=== PATIENT | female | born 1965 | race Caucasian/White ===

== ENCOUNTER 2019-08-02 01:56 | Emergency (ER) | payer OTHER, SELFPAY ==
[2019-08-02 01:54] VITALS: BP 171/80; PULSE 73; RESP 18; TEMP 37.8; O2SAT 97
--- NOTE | 2019-08-02 02:04 | ED.ALLEREA ---
HPI - Allergic Reaction General Chief complaint: Allergic Reaction Stated complaint: allergic reaction Time Seen by Provider: 08/02/19 02:05 Source: patient and RN notes reviewed Mode of arrival: EMS Limitations: no limitations History of Present Illness HPI narrative: Pt is a 53 y/o female who presents to the ED via EMS with c/o possible allergic reaction. She notes that she ate grapes yesterday evening that tasted strange. Pt states that she later developed itching and erythema in her bilateral hands around 00:30 this morning. She notes that the erythema has since spread up her arms and into her chest and face. Pt also reports nausea, vomiting, palpitations, heaviness in her upper chest, and difficulty breathing due to her throat feeling swollen. She notes that she received Zofran and Benadryl while in route to the ED, and states that her symptoms seem to be alleviating while in the ED bed. Pt notes that she had similar symptoms several months ago, but states that she is unsure of what she may have had a reaction to. MD complaint: allergic reaction Onset (ago): hour(s) (1.5) Exposure: unknown Symptoms: rash (bilateral arms; chest; face), itching (bilateral hands), difficulty breathing, nausea, vomiting and other (throat swelling; palpitations; heaviness in upper chest) Treatment prior to arrival: benadryl and other (Zofran) Related Data Home Medications Medication Instructions Recorded Confirmed dapagliflozin-metformin [Xigduo XR] PO 05/30/19 levothyroxine 05/30/19 metoprolol tartrate 05/30/19 Allergies Allergy/AdvReac Type Severity Reaction Status Date / Time codeine Allergy Unknown Unknown Verified 08/02/19 02:03 Sulfa (Sulfonamide Allergy Unknown Unknown Verified 08/02/19 02:03 Antibiotics) doxycycline Allergy Other Verified 08/02/19 02:03 cefaclor AdvReac Unknown NAUSEA Verified 08/02/19 02:03 xyltophy Allergy Itching Uncoded 08/02/19 02:03 Review of Systems Review of Systems: All systems reviewed & are unremarkable except as noted in HPI and below ENT: Reports throat swelling Cardiovascular: Cardiovascular: Reports palpitations and Reports other (heaviness in upper chest) Respiratory: Respiratory: Reports other (difficulty breathing) Gastrointestinal: Gastrointestinal: Reports nausea and Reports vomiting Integumentary/Breasts: Skin/Breast: Reports pruritus (bilateral hands) and Reports rash (bilateral arms; chest; face) [facility] Past Medical History Medical History Anemia Anxiety Arthritis Asthma Bronchitis Cataracts, bilateral COPD (chronic obstructive pulmonary disease) Depression Diabetes Ear infection Endometriosis Hypertension Hypothyroidism Ovarian cyst UTI (urinary tract infection) Surgical History Surgical History History of hysterectomy Hx of appendectomy Hx of arthroscopy of right knee Hx of section Hx of oophorectomy lt ovary Hx of tubal ligation Family History Family History (Updated 01/23/18 @ 09:36 by DOCTOR UNKNOWN) Father Diabetes mellitus Social History Social History Smoking status: Never smoker Alcohol intake: never Comments PCP is Dr. Prince. Exam Narrative: Exam Narrative: GENERAL: Anxious-appearing, well-nourished, and in no acute distress. HEAD: Normocephalic, atraumatic. EYES: PERRL and EOMI. ENT: Mucous membranes moist. No pharyngeal erythema or tonsillar exudate. TMs normal on the right side with slight fluid behind it. Cerumen in left ear canal. No angioedema. Uvula midline nonedematous. NECK: Supple. CHEST: Clear to auscultation. No respiratory distress. HEART: Regular rate and rhythm. Normal peripheral pulses. ABDOMEN: Soft, nontender, nondistended. EXTREMITIES: Normal range of motion. No edema. SKIN: Warm, dry, erythema to the face/chest/upper extremities with excoriations to
[2019-08-02] MEDS: methylPREDNISolone SOD SUCC 125 MG VIAL IV PUSH (02:23)
[2019-08-02] MEDS: FAMOTIDINE 20 MG/2 ML VIAL IV PUSH (02:23)
[2019-08-02 02:53] VITALS: BP 144/64; PULSE 71; RESP 16; O2SAT 94
--- NOTE | 2019-08-02 03:19 | PC.NURSE ---
this rn checked on pt. pt less flushed. pt states she feels a lot better. she denies having any issues breathing or tightness in chest. notified.
[2019-08-02 03:54] VITALS: BP 120/52; PULSE 66; RESP 18; O2SAT 96
[2019-08-02 04:41] VITALS: BP 133/57; PULSE 66; RESP 16; O2SAT 96
[2019-08-02 06:01] VITALS: BP 132/82; PULSE 85; RESP 16; O2SAT 99
== END 2019-08-02 06:05 | disposition home or self-care (01) ==
PROVIDERS: Emergency Provider Emergency Medicine; PCP Family Medicine
DX: T78.40XA Allergy, unspecified, initial encounter (principal); M19.90 Unspecified osteoarthritis, unspecified site; J44.9 Chronic obstructive pulmonary disease, unspecified; E11.9 Type 2 diabetes mellitus without complications; E03.9 Hypothyroidism, unspecified; I10 Essential (primary) hypertension; Z87.440 Personal history of urinary (tract) infections; H26.9 Unspecified cataract; Z79.84 Long term (current) use of oral hypoglycemic drugs
CPT/HCPCS: 87081; 87804; 87880; 96374; 96375; 99284; J2930

== ENCOUNTER 2019-10-23 12:33 | Outpatient (CLI) | payer OTHER, SELFPAY ==
[2019-10-23 13:02] LABS: Hematocrit 41.9 % (37.0-47.0); Hemoglobin 13.6 g/dL (12.0-15.0); Mean Corpuscular HGB Conc 32.5 g/dl (32-36); Mean Corpuscular Hemoglobin 26.7 pg (26-34); Mean Corpuscular Volume 82.2 fl (80-100); Platelet Count Result 235 k/mm3 (150-375); Red Cell Distribution Width 13.8 % (11.5-14.5); White Blood Count 5.6 K/mm3 (4.5-10.0)
[2019-10-23 13:15] LABS: Alanine Aminotransferase 42 U/L (4-35); Albumin Level 4.6 g/dL (3.5-5.1); Alkaline Phosphatase 94 U/L (38-126); Aspartate Amino Transferase 40 U/L (14-36); Bilirubin,Total 0.4 mg/dL (0.2-1.3); Blood Urea Nitrogen 12 mg/dL (7-17); Calcium 9.5 mg/dL (8.4-10.2); Carbon Dioxide 27 mmol/L (22-30); Chloride 104 mmol/L (98-107); Cholesterol 284 mg/dL (0-200); Estimated Glomerular Filt Rate > 60; Glucose 98 mg/dL (65-105); HDL Direct 49 mg/dL; Potassium 4.1 mmol/L (3.4-5.0); Sodium 137 mmol/L (137-145); Triglycerides 291 mg/dL (<150)
[2019-10-23 13:26] LABS: LDL Cholesterol Direct 139 mg/dL
[2019-10-23 13:50] LABS: Free T4 Free Thyroxine 1.26 ng/mL (0.78-2.19)
== END 2019-10-23 12:34 | disposition home or self-care (01) ==
PROVIDERS: PCP Family Medicine; Visit Provider Physician Assistant Medical
DX: I10 Essential (primary) hypertension (principal); E78.5 Hyperlipidemia, unspecified; E03.9 Hypothyroidism, unspecified
CPT/HCPCS: 36415; 80053; 80061; 84439; 84443; 85027

== ENCOUNTER 2019-11-23 15:08 | Outpatient (CLI) | payer OTHER, SELFPAY ==
[2019-11-23 16:56] LABS: Hepatitis B Surface Antigen Negative (Negative)
[2019-11-23 17:01] LABS: HAV RESULT Negative (Negative); Hepatitis B Core IgM Result Negative (Negative)
[2019-11-23 17:13] LABS: Hepatitis C Virus Antibody Negative (Negative)
[2019-11-26 05:02] LABS: GGT 46 U/L (3-70)
== END 2019-11-23 15:09 | disposition home or self-care (01) ==
PROVIDERS: PCP Family Medicine; Visit Provider Physician Assistant Medical
DX: R79.89 Other specified abnormal findings of blood chemistry (principal)
CPT/HCPCS: 36415; 80074; 82977

== ENCOUNTER 2020-07-28 14:07 | Emergency (ER) | payer OTHER, SELFPAY ==
--- NOTE | ~2020-07-28 | XR_ITS ---
EXAMINATION: XR toe 1st LT min 2V INDICATION: Left first toe pain, initial encounter TECHNIQUE: Four views of the left first toe are obtained on five radiographs. COMPARISON: None available FINDINGS: There is an acute, traumatic, closed, oblique fracture at the medial base of the first prox imal phalanx which extends to the metatarsophalangeal joint. There also appears to be a nondisplaced, comminuted fracture at the base of the first distal phalanx which extends to the interphalangeal hina nt. There is soft tissue swelling of the toe. IMPRESSION: 1. Comminuted fracture of the first distal phalanx and oblique intra-articular fracture of the first proximal phalanx. Reviewed, dictated and finalized at location A. [employer]
--- NOTE | 2020-07-28 14:14 | ED.GENADULT ---
HPI - General Adult General Chief complaint: Extremity Injury, Lower Stated complaint: lt foot big toe injury Time Seen by Provider: 07/28/20 14:14 Source: patient Mode of arrival: ambulatory Limitations: no limitations History of Present Illness HPI narrative: 54-year-old female patient presents to the [facility] with complaints of left big toe pain after tripping over her dog this afternoon. Patient states this happened approximately 2 to 3 hours ago. Patient states that she was holding something in her hands did not see her dog laying down and tripped over her dog. Patient states she has been trying to elevate the toe but denies using any ice, Tylenol or ibuprofen. Patient states it does hurt to try and walk on it. Related Data Home Medications Medication Instructions Recorded Confirmed cetirizine 10 mg tablet 10 mg PO DAILY 08/03/19 07/28/20 Allergies Allergy/AdvReac Type Severity Reaction Status Date / Time dapagliflozin Allergy Mild Unknown Verified 07/28/20 14:18 [From Xigduo XR] metformin [From Xigduo XR] Allergy Mild Unknown Verified 07/28/20 14:18 codeine Allergy Unknown Unknown Verified 07/28/20 14:18 Sulfa (Sulfonamide Allergy Unknown Unknown Verified 07/28/20 14:18 Antibiotics) doxycycline Allergy Other Verified 07/28/20 14:18 cefaclor AdvReac Unknown NAUSEA Verified 07/28/20 14:18 xyltophy Allergy Itching Uncoded 07/28/20 14:18 Review of Systems Review of Systems: Narrative: CONSTITUTIONAL: Denies fever, chills, or sweats. EYES: Denies visual changes, redness, or discharge. ENT: Denies rhinorrhea, congestion, sore throat, or otalgia. CARDIOVASCULAR: Denies chest pain, palpitations, or edema. RESPIRATORY: Denies cough or dyspnea. GASTROINTESTINAL: Denies abdominal pain, nausea, vomiting, or diarrhea. GENITOURINARY: Denies dysuria or hematuria. SKIN: Denies rash or itching. MUSCULOSKELETAL: Denies back pain, joint pain, or myalgia. Positive pain to left big toe NEUROLOGIC: Denies headache, numbness, or weakness. PSYCHIATRIC: Denies anxiety or depression. [facility] Past Medical History Medical History (Updated 07/28/20 @ 14:58 by LAIHT Oshea) Anemia Anxiety Arthritis Asthma Bronchitis Cataracts, bilateral COPD (chronic obstructive pulmonary disease) Depression Diabetes Ear infection Endometriosis Hypertension Hypothyroidism Ovarian cyst UTI (urinary tract infection) Surgical History Surgical History History of hysterectomy Hx of appendectomy Hx of arthroscopy of right knee Hx of section Hx of oophorectomy lt ovary Hx of tubal ligation Family History Family History Father Diabetes mellitus Social History Social History Smoking status: Never smoker Alcohol intake: never Comments At the time of my signature I agree with nursing past medical history, surgical, social, and family history. There is no relevant family history pertinent to the presenting complaint. Exam Narrative: Exam Narrative: GENERAL: Well-appearing, well-nourished, and in no acute distress. HEAD: Normocephalic, atraumatic. EYES: PERRLA and EOMI. ENT: Nares clear, no rhinorrhea or epistaxis. Mucous membranes moist. NECK: Supple. No lymphadenopathy CHEST: Clear to auscultation. No respiratory distress. HEART: Regular rate and rhythm. No murmur heard. Normal peripheral pulses. ABDOMEN: Soft, nontender, nondistended, normal active bowel sounds. EXTREMITIES: Normal range of motion. No edema. Patient does have bruising noted over the PIP joint of the left great toe on the dorsal side. There is tenderness on palpation there as well as pain when trying to bend it. Patient does appear to have little bit of blood underneath the toenail of the left great toe. DP pulses present. No numbness or tingling. Good sensation to the distal
[2020-07-28 14:22] VITALS: BP 140/74; PULSE 76; RESP 16; TEMP 36.9; O2SAT 100
[2020-07-28] MEDS: ACETAMINOPHEN 500 MG TABLET 1000 MG PO (14:54)
== END 2020-07-28 15:07 | disposition home or self-care (01) ==
PROVIDERS: Emergency Provider Nurse Practitioner Family; PCP Family Medicine
DX: S92.425A Nondisplaced fracture of distal phalanx of left great toe, initial encounter for closed fracture (principal); W01.0XXA Fall on same level from slipping, tripping and stumbling without subsequent striking against object, initial encounter; S90.212A Contusion of left great toe with damage to nail, initial encounter; M19.90 Unspecified osteoarthritis, unspecified site; J44.9 Chronic obstructive pulmonary disease, unspecified; E11.9 Type 2 diabetes mellitus without complications; E03.9 Hypothyroidism, unspecified; I10 Essential (primary) hypertension; N80.9 Endometriosis, unspecified; H26.9 Unspecified cataract
CPT/HCPCS: 11740; 73660; 99214; A9270; G0463

== ENCOUNTER 2020-10-03 15:27 | Outpatient (CLI) | payer OTHER, SELFPAY ==
--- NOTE | ~2020-10-03 | XR_ITS ---
XR foot LT 2V 10/03/2020 15:49 Indication: Left foot pain Procedure: 2 views left foot Comparison: 07/28/2020 Findings: There are degenerative changes of the first digit at the MTP and IP joints. There is mild s oft tissue swelling of the first digit. No acute fracture or traumatic malalignment. Lisfranc joint i ntact. Small degenerative calcaneal enthesophytes. The previously visualized fracture of the first di stal phalanx and proximal phalanx are not visualized on the current study. Consider correlation with complete left foot series. Impression: 1: Healed fracture left first distal phalanx. No discrete fracture line identified on the current kameron dy. Consider complete left foot series. Reviewed, dictated and finalized at location A. Impression: 1: Healed fracture left first distal phalanx. No discrete fracture line identif ied on the current study. Consider complete left foot series.
== END 2020-10-03 15:28 | disposition home or self-care (01) ==
LOC: ANHIMG 15:33
PROVIDERS: PCP Family Medicine; Visit Provider Physician Assistant Medical
DX: S92.403 Displaced unspecified fracture of unspecified great toe (principal); X58.XXXD Exposure to other specified factors, subsequent encounter
CPT/HCPCS: 73620

== ENCOUNTER 2021-03-08 09:42 | Outpatient (CLI) | payer OTHER, SELFPAY ==
[2021-03-08 11:40] LABS: Rubella IgG Antibody 35.1 IU/ML
== END 2021-03-08 09:43 | disposition home or self-care (01) ==
PROVIDERS: PCP Family Medicine; Visit Provider Physician Assistant Medical
DX: E78.9 Disorder of lipoprotein metabolism, unspecified (principal)
CPT/HCPCS: 36415; 86735; 86762; 86765

== ENCOUNTER 2021-03-29 08:51 | Outpatient (CLI) | payer OTHER, SELFPAY ==
[2021-03-29 12:21] LABS: Alanine Aminotransferase 24 U/L (4-35); Albumin Level 5.1 g/dL (3.5-5.1); Alkaline Phosphatase 107 U/L (38-126); Anion Gap 10 mmol/L (8-16); Aspartate Amino Transferase 27 U/L (14-36); Bilirubin,Total 0.4 mg/dL (0.2-1.3); Blood Urea Nitrogen 10 mg/dL (7-17); Calcium 9.7 mg/dL (8.4-10.2); Carbon Dioxide 27 mmol/L (22-30); Chloride 103 mmol/L (98-107); Cholesterol 268 mg/dL (0-200); Estimated Glomerular Filt Rate > 60; Glucose 96 mg/dL (65-110); HDL Direct 53 mg/dL; Potassium 4.4 mmol/L (3.4-5.0); Sodium 140 mmol/L (137-145); Triglycerides 379 mg/dL (<150)
[2021-03-29 12:23] LABS: Creatinine Urine 47.8 mg/dL
[2021-03-29 12:26] LABS: MALB Creatinine Ratio 22.4 mg/g (0-30); Microalbumin Urine Random 10.7 mg/L (0-16.7)
[2021-03-29 12:32] LABS: LDL Cholesterol Direct 122 mg/dL
[2021-03-29 12:37] LABS: Free T4 Free Thyroxine 1.55 ng/mL (0.78-2.19)
[2021-03-29 12:52] LABS: Thyroid Stimulating Hormone 0.334 uIU/mL (0.465-4.680)
== END 2021-03-29 08:52 | disposition home or self-care (01) ==
LOC: ANHWCLAB 08:54
PROVIDERS: PCP Family Medicine; Visit Provider Nurse Practitioner Family
DX: E03.9 Hypothyroidism, unspecified (principal); E11.65 Type 2 diabetes mellitus with hyperglycemia; Z68.30 Body mass index [BMI] 30.0-30.9, adult
CPT/HCPCS: 36415; 80053; 80061; 82043; 84439; 84443

== ENCOUNTER 2021-10-02 09:30 | Outpatient (CLI) | payer OTHER, SELFPAY ==
[2021-10-02 13:32] LABS: Anion Gap 8 mmol/L (8-16); Blood Urea Nitrogen 13 mg/dL (7-17); Calcium 8.8 mg/dL (8.4-10.2); Carbon Dioxide 26 mmol/L (22-30); Chloride 104 mmol/L (98-107); Cholesterol 297 mg/dL (0-200); Estimated Glomerular Filt Rate > 60; Glucose 79 mg/dL (65-110); HDL Direct 49 mg/dL; Potassium 4.1 mmol/L (3.4-5.0); Sodium 138 mmol/L (137-145); Triglycerides 310 mg/dL (<150)
[2021-10-02 13:43] LABS: LDL Cholesterol Direct 143 mg/dL
[2021-10-02 13:45] LABS: Free T4 Free Thyroxine 1.38 ng/mL (0.78-2.19); Vitamin D 25 Hydroxy 18.4 ng/mL
[2021-10-02 14:00] LABS: Creatinine Urine 140.2 mg/dL
[2021-10-02 14:01] LABS: Thyroid Stimulating Hormone 0.276 uIU/mL (0.465-4.680)
[2021-10-02 14:06] LABS: MALB Creatinine Ratio 15.4 mg/g (0-30); Microalbumin Urine Random 21.6 mg/L (0-16.7)
[2021-10-05 15:01] LABS: Triiodothyronine T3 Free 2.8 pg/mL (2.3-4.2)
== END 2021-10-02 09:31 | disposition home or self-care (01) ==
LOC: ANHWCLAB 09:33
PROVIDERS: PCP Family Medicine; Visit Provider Nurse Practitioner Family
DX: E11.9 Type 2 diabetes mellitus without complications (principal); E03.9 Hypothyroidism, unspecified; E04.9 Nontoxic goiter, unspecified; E07.9 Disorder of thyroid, unspecified
CPT/HCPCS: 36415; 80048; 80061; 82043; 82306; 82607; 84439; 84443; 84481

== ENCOUNTER 2021-10-02 17:08 | Emergency (ER) | payer OTHER, SELFPAY ==
[2021-10-02 17:12] VITALS: BP 137/51; PULSE 72; RESP 20; TEMP 36.7; O2SAT 97
--- NOTE | 2021-10-02 17:35 | ED.URI ---
HPI - URI/Sore Throat General Chief Complaint: Upper Respiratory Infection Stated Complaint: SNEEZING/EARACHE Time Seen by Provider: 10/02/21 17:36 Source: patient, RN notes reviewed and old records reviewed Mode of arrival: ambulatory Limitations: no limitations History of Present Illness HPI Narrative: 56-year-old female who presents to [facility] accompanied by with 2-week history of ear pain, scratchy throat, sinus congestion, drainage and sinus pressure. Patient states she does have a history of asthma denies any recent wheezing or shortness of breath.Patient states that she does also have allergies and she took some Sudafed along with her Benadryl which did not help. 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 MD elicited complaint: sore throat, rhinorrhea, nasal congestion, sinus pain and other (Ear pain) Description of mucous: green Related Data Home Medications Medication Instructions Recorded Confirmed prasterone (dhea) 25 mg capsule 50 mg PO DAILY cap 10/02/21 Allergies Allergy/AdvReac Type Severity Reaction Status Date / Time dapagliflozin Allergy Mild Unknown Verified 10/02/21 08:37 [From Xigduo XR] metformin [From Xigduo XR] Allergy Mild Unknown Verified 10/02/21 08:37 codeine Allergy Unknown Unknown Verified 10/02/21 08:37 Sulfa (Sulfonamide Allergy Unknown Unknown Verified 10/02/21 08:37 Antibiotics) doxycycline Allergy Other Verified 10/02/21 08:37 cefaclor AdvReac Unknown NAUSEA Verified 10/02/21 08:37 xyltophy Allergy Itching Uncoded 03/29/21 08:07 Review of Systems Review of Systems: CONSTITUTIONAL: Denies fever, chills, or sweats. EYES: Denies visual changes, redness, or discharge. ENT: Positive for rhinorrhea, congestion, sore throat, or otalgia, sinus pressure CARDIOVASCULAR: Denies chest pain, palpitations, or edema. RESPIRATORY: denies acute cough or dyspnea. GASTROINTESTINAL: Denies abdominal pain, nausea, vomiting, or diarrhea. GENITOURINARY: Denies dysuria or hematuria. SKIN: Denies rash or itching. MUSCULOSKELETAL: Denies back pain, joint pain, or myalgia. NEUROLOGIC: Denies headache, numbness, or weakness. PSYCHIATRIC: Denies anxiety or depression. All systems reviewed & are unremarkable except as noted in HPI and below PMFSH Past Medical History Medical History Anemia Anxiety Arthritis Asthma BMI 30.0-30.9,adult Bronchitis Cataracts, bilateral COPD (chronic obstructive pulmonary disease) Depression Diabetes Ear infection Endometriosis Hypertension Hypothyroidism Ovarian cyst Painful urination UTI (urinary tract infection) Surgical History Surgical History History of hysterectomy Hx of appendectomy Hx of arthroscopy of right knee Hx of section Hx of oophorectomy lt ovary Hx of tubal ligation Family History Family History Father Diabetes mellitus Social History Social History Smoking status: Never smoker Second hand tobacco smoke exposure: No Alcohol intake: never Substance use: never Substance use type: does not use Comments At time of signature, agree with nursing past medical, surgical, social and family history. There is no relevant family history pertinent to the presenting complaint Exam Narrative: GENERAL: Well-appearing, well-nourished, and in no acute distress. HEAD: Normocephalic, atraumatic. EYES: PERRLA and EOMI. ENT: Nares red with membranes red and swollen,clear to at times greenish tinged rhinorrhea no epistaxis. Mucous membranes moist.TM's normal with good light reflex, throat red with no lesions or exudates, tonsil red and swollen, post nasal drainage present
== END 2021-10-02 17:53 | disposition home or self-care (01) ==
PROVIDERS: Emergency Provider Registered Nurse; PCP Family Medicine
DX: J01.40 Acute pansinusitis, unspecified (principal); M19.90 Unspecified osteoarthritis, unspecified site; J44.9 Chronic obstructive pulmonary disease, unspecified; E11.9 Type 2 diabetes mellitus without complications; I10 Essential (primary) hypertension; E03.9 Hypothyroidism, unspecified; N80.9 Endometriosis, unspecified; H26.9 Unspecified cataract
CPT/HCPCS: 87081; 87880; 99213; G0463

== ENCOUNTER 2022-02-14 14:17 | Outpatient (CLI) | payer OTHER, SELFPAY ==
--- NOTE | ~2022-02-14 | XR_ITS ---
XR chest 2V DATE: 02/14/2022 14:35 INDICATION: Cough TECHNIQUE: PA and lateral views COMPARISON: 03/29/2012 PA and lateral chest FINDINGS: Normal heart size. No hilar or mediastinal enlargement. No pulmonary infiltrate or consolid ation, pleural effusion or pulmonary vascular congestion or pneumothorax. Mild dextroscoliosis as well as degenerative spurring of the thoracic spine. IMPRESSION: No active cardiopulmonary disease Reviewed, dictated and finalized at location B.
== END 2022-02-14 14:18 | disposition home or self-care (01) ==
PROVIDERS: PCP Family Medicine; Visit Provider Nurse Practitioner Family
DX: R05.9 Cough, unspecified (principal)
CPT/HCPCS: 71046

== ENCOUNTER 2022-10-09 10:16 | Outpatient (CLI) | payer OTHER, SELFPAY ==
[2022-10-09 17:16] LABS: Anion Gap 8 mmol/L (8-16); Blood Urea Nitrogen 10 mg/dL (7-17); Calcium 9.5 mg/dL (8.4-10.2); Carbon Dioxide 28 mmol/L (22-30); Chloride 103 mmol/L (98-107); Cholesterol 303 mg/dL (0-200); Estimated Glomerular Filt Rate > 60; Glucose 82 mg/dL (65-110); HDL Direct 49 mg/dL; Potassium 4.1 mmol/L (3.4-5.0); Sodium 139 mmol/L (137-145); Triglycerides 246 mg/dL (<150)
[2022-10-09 17:24] LABS: Appearance Urine Clear (Clear); Bilirubin Urine Negative (Negative); Blood Urine Negative (Negative); Color Urine Yellow (Yellow); Glucose Urine UA Negative (Negative); Ketones Urine Negative (Negative); Leukocyte Esterase Ur Trace LEU/UL (Negative); Nitrate Urine Negative (Negative); Protein Urine Negative (Negative); Urobilinogen Urine 0.2 mg/dL (<2.0)
[2022-10-09 17:27] LABS: LDL Cholesterol Direct 163 mg/dL
[2022-10-09 17:43] LABS: Add Urine Microscopic? NO
[2022-10-09 18:24] LABS: MALB Creatinine Ratio < 18.2 mg/g (0-30); Microalbumin Urine Random < 6.0 mg/L (0-16.7)
[2022-10-14 07:47] LABS: Rubeola Measles IgG >300.00 AU/mL
== END 2022-10-09 10:17 | disposition home or self-care (01) ==
LOC: ANHWCLAB 10:18
PROVIDERS: PCP Family Medicine; Visit Provider Nurse Practitioner Family
DX: R35.0 Frequency of micturition (principal); I10 Essential (primary) hypertension; E11.65 Type 2 diabetes mellitus with hyperglycemia; Z23 Encounter for immunization
CPT/HCPCS: 36415; 80048; 80061; 81003; 82043; 86765

== ENCOUNTER 2022-11-02 16:55 | Emergency (ER) | payer OTHER, SELFPAY ==
--- NOTE | ~2022-11-02 | CT_ITS ---
EXAMINATION: CT abdomen pelvis w con DATE: 11/02/2022 18:45 INDICATION: Flank pain and lower abdominal pain. Urinary tract infection and fever. Nausea and vomiti ng. TECHNIQUE: Computed tomography (CT) of the abdomen and pelvis was performed with 100 mL Omnipaque-350 intravenous contrast. Automated exposure control and iterative reconstruction technique were employe d. The dose-length product was 694.38 mGy-cm. COMPARISON: None FINDINGS: Calcified nodule in the right major fissure, calcified right hilar lymph nodes and small splenic calc ific lesions, all consistent with old granulomatous disease. Heart size is normal. No pericardial or pleural effusion. Liver, gallbladder, pancreas, bilateral adrenal glands and right kidney are normal. 9 mm cyst at the upper pole of the left kidney. Appendectomy clips at the tip the cecum. Bowels are otherwise unremarkable with no abnormal wall thickening or obstruction. Bladder is normal. The uterus is not identified and has likely been surgically resected. Sclerotic bone island at the subtrochante amy left femur. Moderate to severe lower lumbar facet osteoarthritis. IMPRESSION: 1. No acute intra-abdominal/pelvic process. Reviewed, dictated and finalized at location A.
[2022-11-02 16:56] VITALS: BP 128/73; PULSE 69; RESP 16; TEMP 36.9; O2SAT 99
[2022-11-02 17:42] LABS: Basophils Percent Auto 0.9 % (0.2-1.2); Eosinophils Absolute Auto 0.1 K/mm3 (0-0.3); Eosinophils Percent Auto 2.1 % (0-4.4); Hematocrit 40.6 % (37.0-47.0); Immature Granulocyte Absolute 0.01 K/mm3 (0.00-0.031); Immature Granulocyte Percent A 0.2 % (0-0.5); Lymphocytes Absolute Auto 1.27 K/mm3 (0.9-3.2); Lymphocytes Percent Auto 29.3 % (18.3-44.2); Mean Corpuscular Hemoglobin 26.2 pg (26-34); Mean Corpuscular Volume 81.9 fl (80-100); Mean Platelet Volume 8.3 fl (7.4-10.4); Monocytes Absolute Auto 0.4 K/mm3 (0.1-0.6); Monocytes Percent Auto 8.5 % (2.6-8.5); Neutrophils Absolute Auto 2.6 K/mm3 (1.3-6.7); Platelet Count Result 226 k/mm3 (150-375); Red Blood Count 4.96 M/mm3 (4.2-5.4); Red Cell Distribution Width 14.1 % (11.5-14.5); White Blood Count 4.3 K/mm3 (4.5-10.0)
[2022-11-02 17:47] LABS: Appearance Urine Cloudy (Clear); Bacteria Urine None Seen /hpf; Bilirubin Urine Negative (Negative); Blood Urine Negative (Negative); Color Urine Yellow (Yellow); Glucose Urine UA Negative (Negative); Ketones Urine Negative (Negative); Leukocyte Esterase Ur 1+ LEU/UL (Negative); Nitrate Urine Negative (Negative); Non Pathogenic Casts 0-2; Protein Urine Negative (Negative); Specific Grav Ur 1.013 (1.001-1.035); Squamous Epithelial Cell Urine None seen /hpf (Few)
--- NOTE | 2022-11-02 17:48 | ED.FEMALEGU ---
HPI - Female Genitourinary General Chief complaint: Urogenital-Female Stated complaint: UTI getting worse Time Seen by Provider: 11/02/22 17:11 Source: patient and old records reviewed Mode of arrival: ambulatory Limitations: no limitations History of Present Illness HPI Narrative: Patient is a 57-year-old female who presents to the ED with report abdominal pain and N/V/D. Patient reports she was recently diagnosed with a UTI. She states she had outpatient blood work done and was told the infection spread to her kidneys. She completed a 10-day course of Augmentin on Saturday. Patient states she has continued to feel unwell with persistent dysuria, frequency. She complains of fatigue, pain across her lower back, lower abdominal pain, and developed nausea and vomiting last night. She does complain of persistent nausea currently. She also had a fever of 100 degrees today, for which she took Tylenol. Denies any issues with diarrhea or constipation, cough or cold symptoms. Related Data Home Medications Medication Instructions Recorded Confirmed prasterone (dhea) 25 mg capsule 50 mg PO DAILY 10/02/21 10/18/22 (DHEA) Allergies Allergy/AdvReac Type Severity Reaction Status Date / Time dapagliflozin Allergy Mild Unknown Verified 10/18/22 08:44 [From Xigduo XR] metformin [From Xigduo XR] Allergy Mild Unknown Verified 10/18/22 08:44 codeine Allergy Unknown Unknown Verified 10/18/22 08:44 Sulfa (Sulfonamide Allergy Unknown Unknown Verified 10/18/22 08:44 Antibiotics) doxycycline Allergy Other Verified 10/18/22 08:44 lisinopril AdvReac Intermediate Cough Verified 10/18/22 08:44 cefaclor AdvReac Unknown NAUSEA Verified 10/18/22 08:44 xyltophy Allergy Itching Uncoded 10/18/22 08:44 Review of Systems Review of Systems: CONSTITUTIONAL: See HPI. ENT: Denies rhinorrhea, congestion, sore throat. CARDIOVASCULAR: Denies chest pain. RESPIRATORY: Denies cough or dyspnea. GASTROINTESTINAL: See HPI GENITOURINARY: See HPI. MUSCULOSKELETAL: See HPI. NEUROLOGIC: Denies headache, numbness, or weakness. All systems reviewed & are unremarkable except as noted in HPI and below PMFSH Past Medical History Medical History Anemia Anxiety Arthritis Asthma BMI 30.0-30.9,adult Bronchitis Cataracts, bilateral COPD (chronic obstructive pulmonary disease) Depression Diabetes Ear infection Endometriosis Hypertension Hypothyroidism Ovarian cyst Painful urination UTI (urinary tract infection) Surgical History Surgical History History of hysterectomy Hx of appendectomy Hx of arthroscopy of right knee Hx of section Hx of oophorectomy lt ovary Hx of tubal ligation Family History Family History Father Diabetes mellitus Mother Diabetes mellitus Sibling Diabetes mellitus Social History Social History Smoking status: Never smoker Second hand tobacco smoke exposure: Yes Alcohol intake: never Substance use: never Substance use type: does not use Lack of Transportation: No Lack of Food: Never True Current Housing: I Have Housing Concerned About Future Housing: No Difficulty Paying Gas/Electric Bills: YES Difficulty Paying for Meds: No Currently Unemployed: No Education: High School Diploma/GED Difficulty w/ Childcare or Family Care: No Living arrangements: with family Occupation/Education: occupation 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 HEAD: Normocephalic, atraumatic. NECK: Supple. No adenopathy, no masses. RESPIRATORY: Airway patent, r
[2022-11-02 17:59] LABS: Add Urine Microscopic? YES
[2022-11-02] MEDS: SODIUM CHLORIDE 0.9% IV 1,000 ML 999 ML IV CONT ×2 (18:02→19:11)
[2022-11-02] MEDS: ONDANSETRON INJ 4 MG/2 ML VIAL IV PUSH (18:02)
[2022-11-02 18:06] LABS: Alanine Aminotransferase 28 U/L (6-35); Albumin Level 4.3 g/dL (3.5-5.1); Alkaline Phosphatase 108 U/L (38-126); Anion Gap 6 mmol/L (8-16); Aspartate Amino Transferase 28 U/L (14-36); Bilirubin,Total 0.6 mg/dL (0.2-1.3); Blood Urea Nitrogen 9 mg/dL (7-17); Calcium 8.3 mg/dL (8.4-10.2); Carbon Dioxide 28 mmol/L (22-30); Chloride 103 mmol/L (98-107); Estimated CRCL calculation 123 ml/min; Estimated Glomerular Filt Rate > 60; Glucose 98 mg/dL (65-110); Potassium 3.6 mmol/L (3.4-5.0); Sodium 137 mmol/L (137-145)
--- NOTE | 2022-11-02 18:25 | PC.NURSE ---
called lab at this time to add on lipase to patient's blood specimen
[2022-11-02 18:48] LABS: Lipase 89 U/L (23-300)
[2022-11-02 19:52] LABS: Influenza A QL RT-PCR Negative (Negative); Influenza B QL RT-PCR Negative (Negative); SARS-CoV-2 RNA PCR Negative (Negative)
[2022-11-02] MEDS: KETOROLAC 30 MG/ML VIAL (*BKC) IV PUSH (20:34)
[2022-11-02] MEDS: METOCLOPRAMIDE HCL INJ 10 MG/2 ML VIAL IV PUSH (20:38)
== END 2022-11-02 21:23 | disposition home or self-care (01) ==
PROVIDERS: Emergency Provider Physician Assistant; PCP Family Medicine
DX: N39.0 Urinary tract infection, site not specified (principal); R11.2 Nausea with vomiting, unspecified; Z20.822 Contact with and (suspected) exposure to COVID-19; J44.9 Chronic obstructive pulmonary disease, unspecified; E11.9 Type 2 diabetes mellitus without complications; E03.9 Hypothyroidism, unspecified; I10 Essential (primary) hypertension; N80.9 Endometriosis, unspecified; F41.9 Anxiety disorder, unspecified; F32.A Depression, unspecified; M19.90 Unspecified osteoarthritis, unspecified site; Z86.2 Personal history of diseases of the blood and blood-forming organs and certain disorders involving the immune mechanism; Z90.710 Acquired absence of both cervix and uterus; Z90.721 Acquired absence of ovaries, unilateral; Z77.22 Contact with and (suspected) exposure to environmental tobacco smoke (acute) (chronic); Z79.85 Long-term (current) use of injectable non-insulin antidiabetic drugs
CPT/HCPCS: 36415; 74177; 80053; 81001; 83690; 85025; 87086; 87088; 87636; 96361; 96365; 96375; 99284; J0696; J1885; J2405; J2765; J7030; Q9967

== ENCOUNTER 2023-01-25 15:05 | Emergency (ER) | payer OTHER, SELFPAY ==
[2023-01-25] VITALS (22 sets, daily range): BP systolic 107–158; BP diastolic 60–83; PULSE 67–83; RESP 13–20; TEMP 36.4; O2SAT 93–99
--- NOTE | ~2023-01-25 | US_ITS ---
EXAMINATION: US right upper quadrant DATE: 01/25/2023 17:49 INDICATION: RUQ PAIN; POS LAWSON'S SIGN TECHNIQUE: Multiple grayscale and Doppler ultrasound images of the right upper quadrant were obtained . COMPARISON: None available. FINDINGS: The visualized portions of the pancreas are normal. Increased liver echogenicity with moira l echotexture. No surface nodularity. Normal hepatopetal flow in the main portal vein. The gallbladde r is normal with no abnormal wall thickening, pericholecystic fluid or stones. The common bile duct m easures 6 mm. There was no sonographic Lawson sign. The right kidney measures 13.2 x 4.3 x 5.4 cm and is normal. IMPRESSION: Echogenic liver, most commonly due to steatosis but also can be seen with hepatitis and fibrosis. Otherwise normal right upper quadrant ultrasound findings. Reviewed, dictated and finalized at [facility]. IMPRESSION: Echogenic liver, most commonly due to steatosis but also can be seen with hepat itis and fibrosis. Otherwise normal right upper quadrant ultrasound findings.
--- NOTE | ~2023-01-25 | CT_ITS ---
EXAMINATION: CT abdomen pelvis w con DATE: 01/25/2023 18:17 INDICATION: RUQ pain TECHNIQUE: Computed tomography (CT) of the abdomen and pelvis was performed with 100 mL Omnipaque-350 intravenous contrast. Automated exposure control and iterative reconstruction technique were employe d. The dose-length product was 631.72 mGy-cm. COMPARISON: 11/02/2022. FINDINGS: Lower thorax: Mild dependent atelectasis Liver: Normal. Biliary/Gallbladder: Gallbladder is normal. No bile duct dilation. Pancreas: No mass or duct dilation. Spleen: Normal. Adrenals:No mass. Kidneys: Simple left upper pole cyst. Mild bilateral perinephric stranding. Mild bilateral pelviectas is, caliectasis, and ureterectasis. GI tract: No small or large bowel dilation. Surgically absent appendix. Mesentery/Peritoneum: No ascites, mass, or free air. Retroperitoneum: No mass. Atherosclerotic abdominal aortic and/or arterial calcifications. Pelvis: Distended urinary bladder without wall thickening or inflammation. Surgically absent uterus. Soft Tissues: Soft tissues and body wall unremarkable. Bones: No acute osseous finding. IMPRESSION: Mild bilateral perinephric stranding, hydronephrosis, and urinary bladder distention, increased from the prior study, no obstructing stone or mass. Correlate for clinical findings of urinary retention, cystitis, or pyelonephritis. Otherwise unremarkable CT abdomen and pelvis findings. Reviewed, dictated and finalized at location K. IMPRESSION: Mild bilateral perinephric stranding, hydronephrosis, and urinary bladder diste ntion, increased from the prior study, no obstructing stone or mass. Correlate for clinical findings of urinary retention, cystitis, or pyelonephritis. Otherwise unremarkable CT abdomen and pelvis findings.
[2023-01-25 15:23] LABS: Basophils Absolute Auto 0.1 K/mm3 (0.0-0.1); Eosinophils Absolute Auto 0.2 K/mm3 (0-0.3); Eosinophils Percent Auto 2.4 % (0-4.4); Hematocrit 39.1 % (37.0-47.0); Hemoglobin 12.5 g/dL (12.0-15.0); Immature Granulocyte Absolute 0.01 K/mm3 (0.00-0.031); Immature Granulocyte Percent A 0.1 % (0-0.5); Lymphocytes Absolute Auto 3.82 K/mm3 (0.9-3.2); Lymphocytes Percent Auto 44.1 % (18.3-44.2); Mean Corpuscular Hemoglobin 26.3 pg (26-34); Mean Corpuscular Volume 82.1 fl (80-100); Mean Platelet Volume 8.8 fl (7.4-10.4); Monocytes Absolute Auto 0.7 K/mm3 (0.1-0.6); Monocytes Percent Auto 7.5 % (2.6-8.5); Neutrophils Absolute Auto 3.9 K/mm3 (1.3-6.7); Neutrophils Percent Auto 44.9 % (45.5-73.1); Platelet Count Result 248 k/mm3 (150-375); Red Blood Count 4.76 M/mm3 (4.2-5.4); Red Cell Distribution Width 13.5 % (11.5-14.5); White Blood Count 8.7 K/mm3 (4.5-10.0)
[2023-01-25 15:35] LABS: Alanine Aminotransferase 24 U/L (6-35); Albumin Level 4.6 g/dL (3.5-5.1); Alkaline Phosphatase 105 U/L (38-126); Anion Gap 7 mmol/L (8-16); Aspartate Amino Transferase 26 U/L (14-36); Bilirubin,Total 0.3 mg/dL (0.2-1.3); Blood Urea Nitrogen 13 mg/dL (7-17); Calcium 8.9 mg/dL (8.4-10.2); Carbon Dioxide 27 mmol/L (22-30); Chloride 103 mmol/L (98-107); Estimated CRCL calculation 101 ml/min; Estimated Glomerular Filt Rate > 60; Glucose 86 mg/dL (65-110); Lipase 157 U/L (23-300); Potassium 3.9 mmol/L (3.4-5.0); Sodium 137 mmol/L (137-145)
[2023-01-25 15:45] LABS: Appearance Urine Clear (Clear); Bacteria Urine None Seen /hpf; Bilirubin Urine Negative (Negative); Blood Urine Negative (Negative); Color Urine Yellow (Yellow); Glucose Urine UA Negative (Negative); Ketones Urine Negative (Negative); Leukocyte Esterase Ur Trace LEU/UL (Negative); Nitrate Urine Negative (Negative); Non Pathogenic Casts 0-2; Protein Urine Negative (Negative); RBC Urine 0-2 /hpf (0-2); Specific Grav Ur 1.008 (1.001-1.035); Squamous Epithelial Cell Urine None seen /hpf (Few); Urobilinogen Urine 0.2 mg/dL (<2.0); WBC Urine 0-5 /hpf; pH Urine 6.5 (5.0-9.0)
[2023-01-25 15:48] LABS: Add Urine Microscopic? YES
--- NOTE | 2023-01-25 17:04 | PC.NURSE ---
Pt ambulated to BR with husbands help.
--- NOTE | 2023-01-25 17:15 | ED.ABDPAIN ---
HPI - Abdominal Pain General Chief Complaint: Abdominal Pain <ODALIS Manuel Last Filed: 01/27/23 21:39> Stated Complaint: GALLBLADDER ATTACK <ODALIS Manuel Last Filed: 01/27/23 21:39> Time Seen by Provider: 01/25/23 16:16 <Louise Strange PA-C - Last Filed: 01/27/23 21:39> History of Present Illness HPI narrative: 57-year-old female with a history of gallbladder polyps, diabetes, asthma, hypertension reports for evaluation for right upper quadrant pain x1 week that radiates to her right flank. Patient states the pain is worse after eating and is associated with nausea. She reports 1 episode of emesis last week, none since. Last bowel movement today was hard. Denies fever, chest pain or shortness of breath, body aches or chills, urinary complaints. <ODALIS Manuel Last Filed: 01/27/23 21:39> Related Data Home Medications: Home Medications Medication Instructions Recorded Confirmed prasterone (dhea) 25 mg capsule 50 mg PO DAILY 10/02/21 11/14/22 (DHEA) ondansetron 4 mg disintegrating 4 mg PO Q8H PRN nausea and vomiting 11/14/22 11/14/22 tablet <ODALIS Manuel Last Filed: 01/27/23 21:39> Allergies/Adverse Reactions: Allergies Allergy/AdvReac Type Severity Reaction Status Date / Time dapagliflozin Allergy Mild Unknown Verified 01/25/23 15:08 [From Xigduo XR] metformin [From Xigduo XR] Allergy Mild Unknown Verified 01/25/23 15:08 codeine Allergy Unknown Unknown Verified 01/25/23 15:08 Sulfa (Sulfonamide Allergy Unknown Unknown Verified 01/25/23 15:08 Antibiotics) doxycycline Allergy Other Verified 01/25/23 15:08 lisinopril AdvReac Intermediate Cough Verified 01/25/23 15:08 cefaclor AdvReac Unknown NAUSEA Verified 01/25/23 15:08 xyltophy Allergy Itching Uncoded 11/14/22 08:14 <ODALIS Manuel Last Filed: 01/27/23 21:39> Review of Systems Review of Systems: CONSTITUTIONAL: Denies fever, chills EYES: Denies visual changes, redness, or discharge. ENT: Denies rhinorrhea, congestion, sore throat, or otalgia. CARDIOVASCULAR: Denies chest pain, palpitations, or edema. RESPIRATORY: Denies cough or dyspnea. GASTROINTESTINAL: See HPI GENITOURINARY: Denies dysuria or hematuria. SKIN: Denies rash or itching. MUSCULOSKELETAL: See HPI NEUROLOGIC: Denies headache, numbness, dizziness, or weakness. PSYCHIATRIC: Denies anxiety or depression. <Louise Strange PA-C - Last Filed: 01/27/23 21:39> [facility] Past Medical History Medical History: Medical History Anemia Anxiety Arthritis Asthma BMI 30.0-30.9,adult Bronchitis Cataracts, bilateral COPD (chronic obstructive pulmonary disease) Depression Diabetes Ear infection Endometriosis Hypertension Hypothyroidism Ovarian cyst Painful urination UTI (urinary tract infection) <Louise Strange PA-C - Last Filed: 01/27/23 21:39> Surgical History Surgical History: Surgical History History of hysterectomy Hx of appendectomy Hx of arthroscopy of right knee Hx of section Hx of oophorectomy lt ovary Hx of tubal ligation <Louise Strange PA-C - Last Filed: 01/27/23 21:39> Family History Family History: Family History Father Diabetes mellitus Mother Diabetes mellitus Sibling Diabetes mellitus <Louise Strange PA-C - Last Filed: 01/27/23 21:39> Social History Social History: Social History Smoking status: Never smoker Second hand tobacco smoke exposure: Yes Alcohol intake: never Substance use: never Substance use type: does not use Lack of Transportation: No Lack of Food: Never True Current Housing: I Have Housing Concerned About Future Housing: No D
[2023-01-25] MEDS: SODIUM CHLORIDE 0.9% IV 1,000 ML 999 ML IV CONT (17:33)
[2023-01-25] MEDS: ONDANSETRON INJ 4 MG/2 ML VIAL IV PUSH (17:35)
[2023-01-25] MEDS: HYDROmorphone HCL INJ (*CRX) 1 MG/ML SYR 0.5 MG IV PUSH (17:36)
--- NOTE | 2023-01-25 17:38 | PC.NURSE ---
US at bedside at this time.
[2023-01-25] MEDS: METOCLOPRAMIDE HCL INJ 10 MG/2 ML VIAL IV PUSH (18:41)
== END 2023-01-25 20:40 | disposition home or self-care (01) ==
PROVIDERS: Student in an Organized Health Care Education/Training Program; Emergency Provider Physician Assistant; PCP Family Medicine
DX: R11.2 Nausea with vomiting, unspecified (principal); R10.11 Right upper quadrant pain; E11.9 Type 2 diabetes mellitus without complications; I10 Essential (primary) hypertension; J44.9 Chronic obstructive pulmonary disease, unspecified; E03.9 Hypothyroidism, unspecified
CPT/HCPCS: 36415; 74177; 76705; 80053; 81001; 81025; 83690; 85025; 96361; 96365; 96375; 99284; J0696; J1170; J2405; J2765; J7030; Q9967

== ENCOUNTER 2023-03-24 10:31 | Outpatient (CLI) | payer OTHER, SELFPAY ==
--- NOTE | ~2023-03-24 | MR_ITS ---
EXAMINATION: MR lumbar spine wo con DATE: 03/24/2023 11:10 INDICATION: Other spondylosis with myelopathy, lumbar region. TECHNIQUE: Magnetic resonance imaging (MRI) of the lumbar spine was performed without intravenous con trast. Sequences included sagittal T2-weighted FSE, sagittal T2-weighted FS FSE, sagittal T1-weighted FSE, and axial T2-weighted FSE. COMPARISON: None FINDINGS: Bone alignment is normal. Vertebral body heights and intervertebral disc heights are normal . The distal spinal cord signal intensity is normal. The conus medullaris is at T12-L1. The following disc levels are specifically discussed: L1-L2: The disc does not extend beyond the endplate margin. There is mild right and moderate left fac et joint osteoarthritis. There is no neural foraminal stenosis. There is no central canal stenosis. L2-L3: The disc does not extend beyond the endplate margin. There is moderate and severe left facet j oint osteoarthritis. There is no neural foraminal stenosis. There is no central canal stenosis. L3-L4: The disc is mildly bulging. There is moderate bilateral facet joint osteoarthritis. There is m ild bilateral neural foraminal stenosis. There is no central canal stenosis. L4-L5: The disc is bulging. There is severe bilateral facet joint osteoarthritis. There is mild bilat eral neural foraminal stenosis. There is no central canal stenosis. L5-S1: The disc does not extend beyond the endplate margin. There is severe bilateral facet joint ost eoarthritis. There is mild bilateral neural foraminal stenosis. There is no central canal stenosis. IMPRESSION: 1. Mild lumbar spondylosis. Reviewed, dictated and finalized at location A. IMPRESSION: 1. Mild lumbar spondylosis.
== END 2023-03-24 10:32 | disposition home or self-care (01) ==
PROVIDERS: PCP Family Medicine; Visit Provider Family Medicine
DX: M47.16 Other spondylosis with myelopathy, lumbar region (principal)
CPT/HCPCS: 72148

== ENCOUNTER 2023-04-17 09:18 | Outpatient (CLI) | payer OTHER, SELFPAY ==
[2023-04-17 15:22] LABS: LDL Cholesterol Direct 128 mg/dL
[2023-04-17 15:40] LABS: Alanine Aminotransferase 19 U/L (6-35); Albumin Level 4.4 g/dL (3.5-5.1); Alkaline Phosphatase 93 U/L (38-126); Anion Gap 6 mmol/L (8-16); Aspartate Amino Transferase 39 U/L (14-36); Bilirubin,Total 0.4 mg/dL (0.2-1.3); Blood Urea Nitrogen 14 mg/dL (7-17); Calcium 9.3 mg/dL (8.4-10.2); Carbon Dioxide 27 mmol/L (22-30); Chloride 104 mmol/L (98-107); Cholesterol 267 mg/dL (0-200); Estimated Glomerular Filt Rate > 60; Glucose 86 mg/dL (65-110); HDL Direct 49 mg/dL; Potassium 4.2 mmol/L (3.4-5.0); Sodium 137 mmol/L (137-145); Triglycerides 408 mg/dL (<150)
[2023-04-17 16:04] LABS: Vitamin D 25 Hydroxy 16.3 ng/mL
[2023-04-17 17:06] LABS: Microalbumin Urine Random < 6.0 mg/L (0-16.7)
== END 2023-04-17 09:19 | disposition home or self-care (01) ==
LOC: ANHWCLAB 09:19
PROVIDERS: PCP Family Medicine; Visit Provider Nurse Practitioner Family
DX: E55.9 Vitamin D deficiency, unspecified (principal); E11.65 Type 2 diabetes mellitus with hyperglycemia; E07.9 Disorder of thyroid, unspecified; E03.9 Hypothyroidism, unspecified; I10 Essential (primary) hypertension
CPT/HCPCS: 36415; 80053; 80061; 82043; 82306; 82607; 84443

== ENCOUNTER 2023-06-06 07:57 | Outpatient (CLI) | payer OTHER, SELFPAY ==
[2023-06-06 13:59] LABS: Appearance Urine Clear (Clear); Bacteria Urine None Seen /hpf; Bilirubin Urine Negative (Negative); Blood Urine Negative (Negative); Color Urine Yellow (Yellow); Glucose Urine UA Negative (Negative); Ketones Urine Negative (Negative); Leukocyte Esterase Ur 2+ LEU/UL (Negative); Nitrate Urine Negative (Negative); Non Pathogenic Casts 0-2; Protein Urine Negative (Negative); RBC Urine 0-2 /hpf (0-2); Specific Grav Ur 1.004 (1.001-1.035); Squamous Epithelial Cell Urine None seen /hpf (Few); Urobilinogen Urine 0.2 mg/dL (<2.0); pH Urine 6.5 (5.0-9.0)
[2023-06-06 14:02] LABS: Add Urine Microscopic? YES
== END 2023-06-06 07:58 | disposition home or self-care (01) ==
LOC: ANHWCLAB 07:58
PROVIDERS: PCP Family Medicine; Visit Provider Nurse Practitioner Family
DX: R35.0 Frequency of micturition (principal)
CPT/HCPCS: 81001; 87086; 87088

== ENCOUNTER 2023-11-09 18:11 | Emergency (ER) | payer OTHER, SELFPAY ==
--- NOTE | 2023-11-09 18:17 | ED.FEMALEGU ---
HPI - Female Genitourinary General Chief complaint: Urogenital-Female Stated complaint: UTI Time Seen by Provider: 11/09/23 18:22 Source: patient, RN notes reviewed and old records reviewed Mode of arrival: ambulatory Limitations: no limitations History of Present Illness HPI Narrative: 58-year-old female presents to the [facility] with low back pain, frequency, urgency and burning that has increased over the last week, worse today and took azo. Denies any fevers. Related Data Allergies Allergy/AdvReac Type Severity Reaction Status Date / Time codeine Allergy Mild Gastrointestinal Verified 11/09/23 18:14 Upset dapagliflozin Allergy Mild Unknown Verified 11/09/23 18:14 [From Xigduo XR] metformin [From Xigduo XR] Allergy Mild Unknown Verified 11/09/23 18:14 Sulfa (Sulfonamide Allergy Unknown Unknown Verified 11/09/23 18:14 Antibiotics) doxycycline Allergy Other Verified 11/09/23 18:14 lisinopril AdvReac Intermediate Cough Verified 11/09/23 18:14 cefaclor AdvReac Unknown NAUSEA Verified 11/09/23 18:14 xyltophy Allergy Itching Uncoded 11/09/23 18:14 Review of Systems Review of Systems: All systems reviewed & are unremarkable except as noted in HPI and below Constitutional: Constitutional: Reports no additional constitutional complaints Eyes: Eyes: Reports no additional eye complaints ENT: Reports system reviewed and no additional complaints, except as documented Cardiovascular: Cardiovascular: Reports no additional cardiovascular complaints, Denies chest pain and Denies dyspnea Respiratory: Respiratory: Reports no additional respiratory complaints, Denies chest congestion, Denies cough and Denies dyspnea Gastrointestinal: Gastrointestinal: Reports no additional gastrointestinal complaints, Denies abdominal pain, Denies nausea and Denies vomiting Genitourinary: Genitourinary: Reports as per HPI Musculoskeletal: Musculoskeletal: Reports no additional musculoskeletal complaints Integumentary/Breasts: Skin/Breast: Reports system reviewed and no additional complaints, except as docu Neurologic: Reports system reviewed and no additional complaints, except as documented Psychiatric: Psychiatric: Reports no additional psychiatric complaints Allergic/Immunologic: Allergic/Immunologic: Reports no additional allergic/immunologic complaints PMFSH Past Medical History Medical History Anemia Anxiety Arthritis Asthma BMI 30.0-30.9,adult Bronchitis Cataracts, bilateral COPD (chronic obstructive pulmonary disease) Depression Diabetes Ear infection Endometriosis Hypertension Hypothyroidism Lumbar spondylosis with myelopathy Ovarian cyst Painful urination UTI (urinary tract infection) Surgical History Surgical History History of hysterectomy Hx of appendectomy Hx of arthroscopy of right knee Hx of section Hx of oophorectomy lt ovary Hx of tubal ligation Family History Family History Father Diabetes mellitus Mother Diabetes mellitus Sibling Gastric bypass status for obesity Social History Social History Smoking status: Never smoker Second hand tobacco smoke exposure: Yes Alcohol intake: never Substance use: never Substance use type: does not use Lack of Transportation: No Lack of Food: Never True Current Housing: I Have Housing Concerned About Future Housing: No Difficulty Paying Gas/Electric Bills: YES Difficulty Paying for Meds: No Currently Unemployed: No Education: High School Diploma/GED Difficulty w/ Childcare or Family Care: No Living arrangements: with family Occupation/Education: occupation 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 Gender ident
[2023-11-09 18:21] VITALS: BP 121/53; PULSE 68; RESP 16; TEMP 36.8; O2SAT 98
== END 2023-11-09 18:55 | disposition home or self-care (01) ==
PROVIDERS: Emergency Provider Nurse Practitioner; PCP Family Medicine
DX: N30.01 Acute cystitis with hematuria (principal); M19.90 Unspecified osteoarthritis, unspecified site; J44.9 Chronic obstructive pulmonary disease, unspecified; E11.9 Type 2 diabetes mellitus without complications; N80.9 Endometriosis, unspecified; I10 Essential (primary) hypertension; E03.9 Hypothyroidism, unspecified; M47.16 Other spondylosis with myelopathy, lumbar region; F41.9 Anxiety disorder, unspecified; F32.A Depression, unspecified
CPT/HCPCS: 81003; 87086; 87088; 99213; G0463

== ENCOUNTER 2024-06-02 17:34 | Emergency (ER) | payer OTHER, SELFPAY ==
[2024-06-02 18:12] VITALS: BP 141/70; PULSE 65; RESP 16; TEMP 37.3; O2SAT 99
--- NOTE | 2024-06-02 18:55 | ED_ITS ---
HPI - URI/Sore Throat General Chief Complaint: Upper Respiratory Infection Stated Complaint: EARACHE/SORE THROAT/SINUS CONGESTION Time Seen by Provider: 06/02/24 18:40 Source: patient, RN notes reviewed and old records reviewed Mode of arrival: ambulatory Limitations: no limitations History of Present Illness HPI Narrative: 58-year-old female who presents to [facility] with complaints of sore throat, sinus congestion, ear pain pressure and some cough for the past 2 weeks with increased symptoms for the past 3 days. Patient reports that she was initially taking Benadryl which helped some but now symptoms have increased with no relief with OTC medications. Patient denies any shortness of breath, reports no body aches, no chills or sweats. MD elicited complaint: cough, sore throat, rhinorrhea, nasal congestion and other (ear pressure) Onset (ago): week(s) (2) Severity: moderate Description of mucous: clear and yellow Able to tolerate fluids by mouth: Yes Treatments prior to arrival: cold medicine and other (Benadryl) Related Data Home Medications ?Medication ?Instructions ?Recorded ?Confirmed ?Last Taken ?Type famotidine 20 mg tablet (Pepcid) 20 mg PO .PRN 03/04/24 03/04/24 Unknown History Allergies Allergy/AdvReac Type Severity Reaction Status Date / Time codeine Allergy Mild Gastrointestinal Verified 06/02/24 19:06 Upset dapagliflozin (From Xigduo Allergy Mild Unknown Verified 06/02/24 19:06 XR) metformin (From Xigduo XR) Allergy Mild Unknown Verified 06/02/24 19:06 Sulfa (Sulfonamide Allergy Unknown Unknown Verified 06/02/24 19:06 Antibiotics) doxycycline Allergy Other Verified 06/02/24 19:06 lisinopril AdvReac Intermediate Cough Verified 06/02/24 19:06 cefaclor AdvReac Unknown NAUSEA Verified 06/02/24 19:06 xyltophy Allergy Itching Uncoded 03/04/24 08:47 Review of Systems Review of Systems: CONSTITUTIONAL: Reports malaise, no chills, sweats, or known fever. EYES: Denies visual changes, redness, or discharge. ENT: Reports rhinorrhea, congestion, sinus pain, otalgia and sore throat. CARDIOVASCULAR: Denies chest pain, palpitations, or edema. RESPIRATORY: Reports cough.? Denies dyspnea. GASTROINTESTINAL: Denies abdominal pain, nausea, vomiting, diarrhea SKIN: Denies rash or itching. MUSCULOSKELETAL: Denies myalgia. NEUROLOGIC: Denies headache. All systems reviewed & are unremarkable except as noted in HPI and below PMFSH Past Medical History Medical History History of PCOS Lumbar spondylosis with myelopathy BMI 30.0-30.9,adult Painful urination Anemia Anxiety Depression Arthritis UTI (urinary tract infection) Ovarian cyst Endometriosis Bronchitis COPD (chronic obstructive pulmonary disease) Cataracts, bilateral Ear infection Hypertension Diabetes Hypothyroidism Asthma Surgical History Surgical History Hx of oophorectomy lt ovary Hx of arthroscopy of right knee Hx of section History of hysterectomy Hx of tubal ligation Hx of appendectomy Family History Family History Father Diabetes mellitus Mother Diabetes mellitus Sibling Gastric bypass status for obesity Social History Social History Smoking status: Never smoker Second hand tobacco smoke exposure: Yes Alcohol intake: never Substance use: never Substance use type: does not use Lack of Transportation: No Lack of Food: Never True Current Housing: I Have Housing Concerned About Future Housing: No Difficulty Paying Gas/Electric Bills: YES Difficulty Paying for Meds: No Currently Unemployed: No Education: High School Diploma/GED Difficulty w/ Childcare or Family Care: No Living arrangements: with family Occupation/Education: occupation 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 Gender identity (if verbalized by the patient): Female Comments At time of signature, agree with nursing past medical, surgical, social and family history. There is no relevant family history pertinent to the presenting complaint Exam Narrative: GENERAL: Well-appearing, well-nourished, and in no acute distress. HEAD: Normocephalic EYES: PERRLA, conjunctivae clear ENT: Nares clear, turbinates edematous and erythematous, clear to light yellow discharge.sinus pressure. Mucous membranes moist. TM pearly hunt with dull light reflex bilaterally; no tragal tenderness. Oropharynx erythematous without lesions. Tonsils not enlarged and without exudate, no drooling, no hoarseness, no trismus, uvula midline.post nasal drainage noted NECK: Supple. No lymphadenopathy CHEST: Clear to auscultation, breath sounds equal. No wheezing, rhonchi, rales, or stridor. No respiratory distress, speaks in full sentences.cough SAO2 99% on room air HEART: Regular rate and rhythm. No murmur heard. SKIN: Warm, dry, no rash. NEURO: Alert and oriented x3. PSYCH: Normal mood and affect Course Course Emergency Course: Patient is aware of diagnosis, understands and agrees to treatment plan.? Anticipatory guidance given.? Patient agrees to follow-up as directed and is aware of reasons to seek care at the emergency department. Portions of this record may have been created with voice recognition software Level of Care: Express Care Visit Vital Signs Vital signs: Vital Signs Temperature 37.3 C 06/02/24 18:12 Pulse Rate 65 06/02/24 18:12 Respiratory Rate 16 06/02/24 18:12 Blood Pressure 141/70 H 06/02/24 18:12 Pulse Oximetry 99 06/02/24 18:12 Temperature 37.3 C 06/02/24 18:12 Pulse Rate 65 06/02/24 18:12 Respiratory Rate 16 06/02/24 18:12 Blood Pressure 141/70 H 06/02/24 18:12 Pulse Oximetry 99 06/02/24 18:12 Oxygen Delivery Room Air 06/02/24 18:25 Reviewed MDM - URI/Sore Throat MDM Narrative Medical decision making narrative: Differential diagnosis considered: Post virus, strep pharyngitis, allergic rhinitis, upper respiratory tract infection, sinusitis, rhinosinusitis, nasopharyngitis. viral pharyngitis, otitis media, otitis externa, pneumonia, bronchitis, viral cough syndrome, viral syndrome, and influenza.? Exam findings show no acute concerns or changes; patient is non-toxic appearing and is in no distress.? Patient is appropriate for outpatient treatment and follow-up. Differential Diagnosis Differential diagnosis: Likely upper respiratory infection, otitis media, sinusitis, viral infection, pharyngitis and other (strep pharyngitis) Lab Data Attestation: I reviewed the patient's lab results. Lab results narrative: strep screen negative, culture sent Labs: Lab Results 06/02/24 Range/Units 18:57 POC Grp A Strep Screen Negative (Negative) Critical Care Time Critical Care Time Critical Care Time: No Discharge Plan Discharge Clinical Impression: Sinusitis Qualifiers: Sinusitis location: pansinusitis Chronicity: acute Recurrence: non-recurrent Qualified Code(s): J01.40 - Acute pansinusitis, unspecified Patient Disposition: Home, Self-Care Condition: Stable Instructions: Antibiotic Form, Sinusitis (ED), Acute Cough (ED) Additional Instructions: Increase fluids especially juices and water [id number] cough and cold medicine of your choice for your symptoms Zyrtec Claritin or Michelle daily include Coricidin brand decongestant Cough tablets as directed for cough--do not bite, chew or suck on--swallow whole Continue your inhaler/nebulizer as directed Steroids as directed--take with food heat to the face 20-30 minutes 4-6 times a day for pain Salt water gargles, throat lozenges or throat sprays as desired Antibiotic as directed--finished the medication If your symptoms persist, change or worsen significantly before you can contact your personal physician then please, without delay, go to the emergency depar tment for further evaluation. Follow-up with PCP in 7-10 days or sooner if needed Follow up with PCP soon in regards to your blood pressure which is elevated above threshold for referral. Blood pressure above 120/80 may indicate pre- hypertension. 141/70 Patient Language: Burkinan Prescriptions: New amoxicillin 500 mg capsule 500 mg PO Q8H 7 Days Qty: 21 0RF methylprednisolone [Medrol (Gautam)] 4 mg tablets,dose pack See Rx Instructions .ROUTE .COMPLEX Qty: 21 0RF Rx Instructions: orally per package directions take with food start 06/03/2024 No Action fluticasone propionate 50 mcg/actuation spray,suspension 2 spray NASAL DAILY Qty: 15.8 0RF Rx Instructions: administer into each nostril epinephrine 0.3 mg/0.3 mL auto-injector 0.3 mg IM ONCE Qty: 1 0RF Rx Instructions: as a single dose; may repeat once (DME) pen needle, diabetic [BD Ultra-Fine Ankita Pen Needle] 32 gauge x 5/32 needle See Rx Instructions .ROUTE .MEDSUPPLY Qty: 10 1RF Rx Instructions: use weekly tramadol 50 mg tablet 50 mg PO Q6H PRN (Reason: pain) Qty: 60 0RF famotidine [Pepcid] 20 mg tablet 20 mg PO .PRN diphenhydramine HCl [Benadryl] 25 mg capsule 25 mg PO Q6H PRN (Reason: allergic reaction) Qty: 20 0RF (DME) Compact Ultrasonic Nebulizer Misc See Rx Instructions .ROUTE .MEDSUPPLY Qty: 1 0RF Rx Instructions: As directed albuterol sulfate 2.5 mg /3 mL (0.083 %) solution for nebulization 2.5 mg INHALATION Q4H PRN (Reason: shortness of breath or wheezing) Qty: 90 0RF rosuvastatin [Crestor] 40 mg tablet 40 mg PO DAILY Qty: 90 3RF phenazopyridine 200 mg tablet 200 mg PO TID PRN (Reason: pain) Qty: 6 0RF (DME) blood-glucose meter [OneTouch Verio Reflect] Kit See Rx Instructions .Route Qty: 1 0RF Rx Instructions: As directed (DME) OneTouch Verio test strips Strip See Rx Instructions .ROUTE .MEDSUPPLY Qty: 100 1RF Rx Instructions: check blood sugars twice a day (DME) lancets 33 gauge misc See Rx Instructions .ROUTE .MEDSUPPLY Qty: 100 1RF Rx Instructions: use twice daily albuterol sulfate 90 mcg/actuation HFA aerosol inhaler See Rx Instructions .ROUTE .COMPLEX Qty: 2 1RF Dose Instruction: INHALE 2 PUFFS 4 TIMES A DAY NEEDED FOR SHORTNESS OF BREATH OR WHEEZING Rx Instructions: INHALE 2 PUFFS 4 TIMES A DAY NEEDED FOR SHORTNESS OF BREATH OR WHEEZING metoprolol succinate 25 mg tablet extended release 24 hr 25 mg PO DAILY Qty: 90 1RF losartan 25 mg tablet See Rx Instructions .ROUTE .COMPLEX Qty: 90 1RF Dose Instruction: TAKE 1 TABLET BY MOUTH EVERY DAY Rx Instructions: TAKE 1 TABLET BY MOUTH EVERY DAY levothyroxine 137 mcg tablet See Rx Instructions .ROUTE .COMPLEX Qty: 90 1RF Dose Instruction: TAKE 1 TABLET BY MOUTH EVERY DAY Rx Instructions: TAKE 1 TABLET BY MOUTH EVERY DAY Ozempic 2 mg/dose (8 mg/3 mL) pen injector 2 mg subcut WEEKLY Qty: 9 1RF sertraline 100 mg tablet See Rx Instructions .ROUTE .COMPLEX Qty: 90 1RF Dose Instruction: TAKE 1 TABLET BY MOUTH EVERY DAY Rx Instructions: TAKE 1 TABLET BY MOUTH EVERY DAY Follow-up/Referrals: Koby Prince MD [Primary Care Provider] - Time of Disposition: 19:07 Quality [place] Coma Scale Eyes: Open Verbal: Oriented and Alert Motor: Follows Commands Heron Coma Total Score: 15
[2024-06-02 18:59] LABS: EDSTREPNEGPOS1 Negative (Negative)
== END 2024-06-02 19:10 | disposition home or self-care (01) ==
PROVIDERS: Emergency Provider Registered Nurse; PCP Family Medicine
DX: J01.40 Acute pansinusitis, unspecified (principal); E11.9 Type 2 diabetes mellitus without complications; I10 Essential (primary) hypertension; E03.9 Hypothyroidism, unspecified; J44.9 Chronic obstructive pulmonary disease, unspecified
CPT/HCPCS: 87081; 87880; 99213; G0463

== ENCOUNTER 2024-09-09 16:40 | Emergency (ER) | payer OTHER, SELFPAY ==
--- NOTE | ~2024-09-09 | XR_ITS ---
XR abdomen/kub 1V Ordering provider: Wilberto Bernard APRN History: . right flank pain, history of kidney stones . Comparison: August 01, 2010 FINDINGS: BOWEL: Nonobstructive bowel gas pattern. ORGANOMEGALY: None. SIGNIFICANT PATHOLOGIC CALCIFICATIONS: None. OTHER: No free air is seen under the diaphragm. Degenerative the spine. IMPRESSION: NO ACUTE ABDOMINAL FINDINGS. Reviewed, dictated and finalized at location A.
[2024-09-09 16:49] VITALS: BP 130/64; PULSE 61; RESP 16; TEMP 36.8; O2SAT 98
--- NOTE | 2024-09-09 16:53 | ED.FEMALEGU ---
HPI - Female Genitourinary General Chief complaint: Urogenital-Female Stated complaint: R FLANK PAIN Time Seen by Provider: 09/09/24 16:48 Related Data Home Medications ?Medication ?Instructions ?Recorded ?Confirmed ?Last Taken ?Type famotidine 20 mg tablet (Pepcid) 20 mg PO .PRN 03/04/24 03/04/24 Unknown History Allergies Allergy/AdvReac Type Severity Reaction Status Date / Time codeine Allergy Mild Gastrointestinal Verified 09/09/24 16:48 Upset dapagliflozin (From Xigduo Allergy Mild Unknown Verified 09/09/24 16:48 XR) metformin (From Xigduo XR) Allergy Mild Unknown Verified 09/09/24 16:48 Sulfa (Sulfonamide Allergy Unknown Unknown Verified 09/09/24 16:48 Antibiotics) doxycycline Allergy Other Verified 09/09/24 16:48 lisinopril AdvReac Intermediate Cough Verified 09/09/24 16:48 cefaclor AdvReac Unknown NAUSEA Verified 09/09/24 16:48 xyltophy Allergy Itching Uncoded 09/09/24 16:48 PMFSH Past Medical History Medical History History of PCOS Lumbar spondylosis with myelopathy BMI 30.0-30.9,adult Painful urination Anemia Anxiety Depression Arthritis UTI (urinary tract infection) Ovarian cyst Endometriosis Bronchitis COPD (chronic obstructive pulmonary disease) Cataracts, bilateral Ear infection Hypertension Diabetes Hypothyroidism Asthma Surgical History Surgical History Hx of oophorectomy lt ovary Hx of arthroscopy of right knee Hx of section History of hysterectomy Hx of tubal ligation Hx of appendectomy Family History Family History Father Diabetes mellitus Mother Diabetes mellitus Sibling Gastric bypass status for obesity Social History Social History Smoking status: Never smoker Second hand tobacco smoke exposure: Yes Alcohol intake: never Substance use: never Substance use type: does not use Lack of Transportation: No Lack of Food: Never True Current Housing: I Have Housing Concerned About Future Housing: No Difficulty Paying Gas/Electric Bills: YES Difficulty Paying for Meds: No Currently Unemployed: No Education: High School Diploma/GED Difficulty w/ Childcare or Family Care: No Living arrangements: with family Occupation/Education: occupation 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 Gender identity (if verbalized by the patient): Female Course Vital Signs Vital signs: Vital Signs Temperature 98.2 F 09/09/24 16:49 Pulse Rate 61 09/09/24 16:49 Respiratory Rate 16 09/09/24 16:49 Blood Pressure 130/64 09/09/24 16:49 Pulse Oximetry 98 09/09/24 16:49 Temperature 98.2 F 09/09/24 16:49 Pulse Rate 61 09/09/24 16:49 Respiratory Rate 16 09/09/24 16:49 Blood Pressure 130/64 09/09/24 16:49 Pulse Oximetry 98 09/09/24 16:49 Discharge Plan Discharge Patient Language: Tuvaluan Prescriptions: No Action fluticasone propionate 50 mcg/actuation spray,suspension 2 spray NASAL DAILY Qty: 15.8 0RF Rx Instructions: administer into each nostril epinephrine 0.3 mg/0.3 mL auto-injector 0.3 mg IM ONCE Qty: 1 0RF Rx Instructions: as a single dose; may repeat once (DME) pen needle, diabetic [BD Ultra-Fine Ankita Pen Needle] 32 gauge x 5/32 needle See Rx Instructions .ROUTE .MEDSUPPLY Qty: 10 1RF Rx Instructions: use weekly tramadol 50 mg tablet 50 mg PO Q6H PRN (Reason: pain) Qty: 60 0RF famotidine [Pepcid] 20 mg tablet 20 mg PO .PRN diphenhydramine HCl [Benadryl] 25 mg capsule 25 mg PO Q6H PRN (Reason: allergic reaction) Qty: 20 0RF (DME) Compact Ultrasonic Nebulizer Misc See Rx Instructions .ROUTE .MEDSUPPLY Qty: 1 0RF Rx Instructions: As directed albuterol sulfate 2.5 mg /3 mL (0.083 %) solution for nebulization 2.5 mg INHALATION Q4H PRN (Reason: shortness of breath or wheezing) Qty: 90 0RF rosuvastatin [Crestor] 40 mg tablet 40 mg PO DAILY Qty: 90 3RF (DME) blood-glucose meter [OneTouch Verio Reflect] Kit See Rx Instructions .Route Qty: 1 0RF Rx Instructions: As directed (DME) OneTouch Verio test strips Strip See Rx Instructions .ROUTE .MEDSUPPLY Qty: 100 1RF Rx Instructions: check blood sugars twice a day (DME) lancets 33 gauge misc See Rx Instructions .ROUTE .MEDSUPPLY Qty: 100 1RF Rx Instructions: use twice daily metoprolol succinate 25 mg tablet extended release 24 hr 25 mg PO DAILY Qty: 90 1RF Ozempic 2 mg/dose (8 mg/3 mL) pen injector 2 mg subcut WEEKLY Qty: 9 1RF sertraline 100 mg tablet See Rx Instructions .ROUTE .COMPLEX Qty: 90 1RF Dose Instruction: TAKE 1 TABLET BY MOUTH EVERY DAY Rx Instructions: TAKE 1 TABLET BY MOUTH EVERY DAY albuterol sulfate 90 mcg/actuation HFA aerosol inhaler See Rx Instructions .ROUTE .COMPLEX Qty: 2 1RF Dose Instruction: INHALE 2 PUFFS 4 TIMES A DAY NEEDED FOR SHORTNESS OF BREATH OR WHEEZING Rx Instructions: INHALE 2 PUFFS 4 TIMES A DAY NEEDED FOR SHORTNESS OF BREATH OR WHEEZING levothyroxine 137 mcg tablet See Rx Instructions .ROUTE .COMPLEX Qty: 90 1RF Dose Instruction: TAKE 1 TABLET BY MOUTH EVERY DAY Rx Instructions: TAKE 1 TABLET BY MOUTH EVERY DAY losartan 25 mg tablet See Rx Instructions .ROUTE .COMPLEX Qty: 90 0RF Dose Instruction: TAKE 1 TABLET BY MOUTH EVERY DAY Rx Instructions: TAKE 1 TABLET BY MOUTH EVERY DAY Follow-up/Referrals: Koby Prince MD [Primary Care Provider] -
[2024-09-09 16:57] LABS: EDUAAPPEAR Clear; EDUABILI Negative (Negative); EDUABLOOD Trace (Negative); EDUACOLOR1 Yellow; EDUAGLUCOSE Negative (Negative); EDUAKETONE Negative (Negative); EDUALEUKO Trace (Negative); EDUANITRATE Negative (Negative); EDUAPROTEIN Negative (Negative); EDUASPGRAVITY 1.025; EDUAUROBILI 0.2
--- NOTE | 2024-09-09 17:18 | ED_ITS ---
HPI - Female Genitourinary General Chief complaint: Urogenital-Female Stated complaint: R FLANK PAIN Time Seen by Provider: 09/09/24 16:48 History of Present Illness HPI Narrative: 59-year-old female presents to the [facility] today complaining of right flank pain and pain with urination. Patient stated her right flank pain started about 1 week ago. She describes her pain as a constant ache in her right flank. The pain is nonradiating. A she developed dysuria and increased urinary frequency. She does have a history of kidney stones and pyelonephritis. This does have a history of diabetes that is controlled with Ozempic. She reports her last A1c was 5.6%. She denies any fevers, chills, body aches, abdominal pain, nausea, vomiting, diarrhea. Related Data Home Medications ?Medication ?Instructions ?Recorded ?Confirmed ?Last Taken ?Type famotidine 20 mg tablet (Pepcid) 20 mg PO .PRN 03/04/24 03/04/24 Unknown History Allergies Allergy/AdvReac Type Severity Reaction Status Date / Time codeine Allergy Mild Gastrointestinal Verified 09/09/24 16:48 Upset dapagliflozin (From Xigduo Allergy Mild Unknown Verified 09/09/24 16:48 XR) metformin (From Xigduo XR) Allergy Mild Unknown Verified 09/09/24 16:48 Sulfa (Sulfonamide Allergy Unknown Unknown Verified 09/09/24 16:48 Antibiotics) doxycycline Allergy Other Verified 09/09/24 16:48 lisinopril AdvReac Intermediate Cough Verified 09/09/24 16:48 cefaclor AdvReac Unknown NAUSEA Verified 09/09/24 16:48 xyltophy Allergy Itching Uncoded 09/09/24 16:48 Review of Systems Review of Systems: CONSTITUTIONAL: Denies fever, chills, or sweats. EYES: Denies visual changes, redness, or discharge. ENT: Denies rhinorrhea, congestion, sore throat, or otalgia. CARDIOVASCULAR: Denies chest pain, palpitations, or edema. RESPIRATORY: Denies cough or dyspnea. GASTROINTESTINAL: Denies abdominal pain, nausea, vomiting, or diarrhea. GENITOURINARY: Positive for dysuria and increased frequency. SKIN: Denies rash or itching. MUSCULOSKELETAL: Denies back pain, joint pain, or myalgia. Positive for right flank pain. NEUROLOGIC: Denies headache, numbness, or weakness. PSYCHIATRIC: Denies anxiety or depression. All other systems reviewed are negative, except as documented in HPI. [facility] Past Medical History Medical History History of PCOS Lumbar spondylosis with myelopathy BMI 30.0-30.9,adult Painful urination Anemia Anxiety Depression Arthritis UTI (urinary tract infection) Ovarian cyst Endometriosis Bronchitis COPD (chronic obstructive pulmonary disease) Cataracts, bilateral Ear infection Hypertension Diabetes Hypothyroidism Asthma Surgical History Surgical History Hx of oophorectomy lt ovary Hx of arthroscopy of right knee Hx of section History of hysterectomy Hx of tubal ligation Hx of appendectomy Family History Family History Father Diabetes mellitus Mother Diabetes mellitus Sibling Gastric bypass status for obesity Social History Social History Smoking status: Never smoker Second hand tobacco smoke exposure: Yes Alcohol intake: never Substance use: never Substance use type: does not use Lack of Transportation: No Lack of Food: Never True Current Housing: I Have Housing Concerned About Future Housing: No Difficulty Paying Gas/Electric Bills: YES Difficulty Paying for Meds: No Currently Unemployed: No Education: High School Diploma/GED Difficulty w/ Childcare or Family Care: No Living arrangements: with family Occupation/Education: occupation 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 Gender identity (if verbalized by the patient): Female Comments At the time of my signature, I reviewed and agree with the nursing past medical, surgical, social, and family history. There is no relevant family history pertinent to the patient complaint. Exam Narrative: GENERAL: This is a well-nourished, well-developed patient, in no apparent distress. She is nontoxic appearing, non ill-appearing. HEAD: normocephalic, atraumatic. EYES: Sclera clear/white. Vision is grossly intact. EARS: External ears normal, auditory canals clear and without drainage, TMs normal without perforation. Hearing grossly intact. NOSE: External nose normal with no obvious nasal discharge, nares without redness, no rhinorrhea. THROAT: Mucous membranes moist, posterior pharynx clear. NECK: Neck supple, non-tender without lymphadenopathy, masses or thyromegaly. CARDIOVASCULAR: Regular rate and rhythm without murmurs, gallops, or rubs. RESPIRATORY: Clear to auscultation. Breath sounds equal bilaterally. No wheezes, rales, or rhonchi. GASTROINTESTINAL: Abdomen soft, nondistended. Mild tenderness to the suprapubic region. Bowel sounds are active. No hepato-splenomegaly, or palpable masses. No guarding. SKIN: warm, Dry, intact with no suspicious lesions or rash, good texture and turgor. NEURO: awake, alert, and oriented to person, place and time. There were no obvious focal neurologic abnormalities. EXTREMITIES: No joint tenderness, effusion, or edema noted. BACK: Nontender without deformity. Mild right CVA tenderness. Course Course Level of Care: Express Care Visit Vital Signs Vital signs: Vital Signs Temperature 98.2 F 09/09/24 16:49 Pulse Rate 61 09/09/24 16:49 Respiratory Rate 16 09/09/24 16:49 Blood Pressure 130/64 09/09/24 16:49 Pulse Oximetry 98 09/09/24 16:49 Temperature 98.2 F 09/09/24 16:49 Pulse Rate 61 09/09/24 16:49 Respiratory Rate 16 09/09/24 16:49 Blood Pressure 130/64 09/09/24 16:49 Pulse Oximetry 98 09/09/24 16:49 Reviewed MDM - Female Genitourinary MDM Narrative Medical decision making narrative: There is mild right CVA tenderness, with mild suprapubic tenderness to palpation. Her symptoms are more consistent with the urinary tract infection. She is symptomatic with dysuria and increased urinary frequency. Her UA is positive for leukocytes esterase and trace blood. Amount pain the patient was having her right flank was decided to go ahead and get a KUB to assess for a kidney stone. She is aware that the KUB may not identify kidney stone. The KUB obtained showed no significant findings, no kidney stone is identified. Low suspicion for pyelonephritis given no systemic symptoms and normal vital signs. Will treat empirically with Augmentin for 7 days. Anticipatory guidance given. ED return precautions given as well. Differential Diagnosis Differential diagnosis: Likely urinary tract infection and other (Pyelonephritis, renal stone) Lab Data Attestation: I reviewed the patient's lab results. Labs: Lab Results 09/09/24 Range/Units 16:55 POC Urine Color Yellow POC Urine Clarity Clear POC Urine pH 6.0 POC Ur Specif [place] 1.025 POC Urine Protein Negative (Negative) POC Ur Glucose (UA) Negative (Negative) POC Urine Ketones Negative (Negative) POC Urine Blood Trace (Negative) POC Urine Nitrite Negative (Negative) POC Urine Bilirubin Negative (Negative) POC Urine Urobilinogen 0.2 POC U Leukocyte Esteras Trace (Negative) Critical Care Time Critical Care Time Critical Care Time: No Discharge Plan Discharge Clinical Impression: Dysuria Urinary tract infection Qualifiers: Urinary tract infection type: site unspecified Hematuria presence: with hematuria Qualified Code(s): N39.0 - Urinary tract infection, site not specified Patient Disposition: Home, Self-Care Condition: Stable Instructions: Antibiotic Form, Urinary Tract Infection in Women (ED) Additional Instructions: Your urine and symptoms are consistent with a urinary tract infection. Please take the Augmentin as directed and to finish the course even if you starts to feel better. We will send a urine culture off to the lab; if the culture identifies an organism that the prescribed antibiotic will not treat, you will receive a phone call from an urgent care staff member and an appropriate antibiotic will be prescribed. -Also recommend: drink more fluid. It might help flush out germs, and it does no harm -Tylenol/ibuprofen as needed for pain -you may take [id number] azo dose for urinary discomfort. -Follow-up with your primary care provider for urine recheck OR if your symptoms persist, change or worsen significantly before you can contact your personal physician then please, without delay, go to the emergency department for further evaluation. -your x-ray was negative for a kidney stone Patient Language: Luxembourgish Prescriptions: New amoxicillin-pot clavulanate 875-125 mg tablet 1 tablet PO Q12H 7 Days Qty: 14 0RF No Action fluticasone propionate 50 mcg/actuation spray,suspension 2 spray NASAL DAILY Qty: 15.8 0RF Rx Instructions: administer into each nostril epinephrine 0.3 mg/0.3 mL auto-injector 0.3 mg IM ONCE Qty: 1 0RF Rx Instructions: as a single dose; may repeat once (DME) pen needle, diabetic [BD Ultra-Fine Ankita Pen Needle] 32 gauge x 5/32 needle See Rx Instructions .ROUTE .MEDSUPPLY Qty: 10 1RF Rx Instructions: use weekly tramadol 50 mg tablet 50 mg PO Q6H PRN (Reason: pain) Qty: 60 0RF famotidine [Pepcid] 20 mg tablet 20 mg PO .PRN diphenhydramine HCl [Benadryl] 25 mg capsule 25 mg PO Q6H PRN (Reason: allergic reaction) Qty: 20 0RF (DME) Compact Ultrasonic Nebulizer Misc See Rx Instructions .ROUTE .MEDSUPPLY Qty: 1 0RF Rx Instructions: As directed albuterol sulfate 2.5 mg /3 mL (0.083 %) solution for nebulization 2.5 mg INHALATION Q4H PRN (Reason: shortness of breath or wheezing) Qty: 90 0RF rosuvastatin [Crestor] 40 mg tablet 40 mg PO DAILY Qty: 90 3RF (DME) blood-glucose meter [OneTouch Verio Reflect] Kit See Rx Instructions .Route Qty: 1 0RF Rx Instructions: As directed (DME) OneTouch Verio test strips Strip See Rx Instructions .ROUTE .MEDSUPPLY Qty: 100 1RF Rx Instructions: check blood sugars twice a day (DME) lancets 33 gauge misc See Rx Instructions .ROUTE .MEDSUPPLY Qty: 100 1RF Rx Instructions: use twice daily metoprolol succinate 25 mg tablet extended release 24 hr 25 mg PO DAILY Qty: 90 1RF Ozempic 2 mg/dose (8 mg/3 mL) pen injector 2 mg subcut WEEKLY Qty: 9 1RF sertraline 100 mg tablet See Rx Instructions .ROUTE .COMPLEX Qty: 90 1RF Dose Instruction: TAKE 1 TABLET BY MOUTH EVERY DAY Rx Instructions: TAKE 1 TABLET BY MOUTH EVERY DAY albuterol sulfate 90 mcg/actuation HFA aerosol inhaler See Rx Instructions .ROUTE .COMPLEX Qty: 2 1RF Dose Instruction: INHALE 2 PUFFS 4 TIMES A DAY NEEDED FOR SHORTNESS OF BREATH OR WHEEZING Rx Instructions: INHALE 2 PUFFS 4 TIMES A DAY NEEDED FOR SHORTNESS OF BREATH OR WHEEZING levothyroxine 137 mcg tablet See Rx Instructions .ROUTE .COMPLEX Qty: 90 1RF Dose Instruction: TAKE 1 TABLET BY MOUTH EVERY DAY Rx Instructions: TAKE 1 TABLET BY MOUTH EVERY DAY losartan 25 mg tablet See Rx Instructions .ROUTE .COMPLEX Qty: 90 0RF Dose Instruction: TAKE 1 TABLET BY MOUTH EVERY DAY Rx Instructions: TAKE 1 TABLET BY MOUTH EVERY DAY Follow-up/Referrals: Koby Prince MD [Primary Care Provider] - Time of Disposition: 17:52
== END 2024-09-09 18:04 | disposition home or self-care (01) ==
PROVIDERS: PCP Family Medicine
DX: N39.0 Urinary tract infection, site not specified (principal); M19.90 Unspecified osteoarthritis, unspecified site; J44.9 Chronic obstructive pulmonary disease, unspecified; I10 Essential (primary) hypertension; E11.9 Type 2 diabetes mellitus without complications; Z79.85 Long-term (current) use of injectable non-insulin antidiabetic drugs; E03.9 Hypothyroidism, unspecified; H26.9 Unspecified cataract; E28.2 Polycystic ovarian syndrome; N80.9 Endometriosis, unspecified; M47.16 Other spondylosis with myelopathy, lumbar region; F41.9 Anxiety disorder, unspecified; F32.A Depression, unspecified
CPT/HCPCS: 74018; 81003; 87086; 99213; G0463

== ENCOUNTER 2024-10-31 18:38 | Emergency (ER) | payer OTHER, SELFPAY ==
[2024-10-31 18:58] VITALS: BP 148/67; PULSE 62; RESP 16; TEMP 36.6; O2SAT 100
--- NOTE | 2024-10-31 19:42 | ED_ITS ---
HPI - Female Genitourinary General Chief complaint: Urogenital-Female Stated complaint: UTI SYMPTOMS Source: patient Mode of arrival: ambulatory Limitations: no limitations History of Present Illness HPI Narrative: Patient is a 59 year old female who presents to the clinic with complaints of burning with urination, right sided kidney pain, pain in bladder, and frequency x 4 weeks. She was seen here at [facility] 2 weeks ago and treated for a UTI at that time. Patient's urine culture showed at that time that she was negative for a UTI. Denies any fevers, chills, bodyaches. Related Data Home Medications Medication Instructions Recorded Confirmed Last Taken Type famotidine 20 mg tablet (Pepcid) 20 mg PO .PRN 03/04/24 03/04/24 Unknown History Allergies Allergy/AdvReac Type Severity Reaction Status Date / Time codeine Allergy Mild Gastrointestinal Verified 10/31/24 18:58 Upset dapagliflozin (From Xigduo Allergy Mild Unknown Verified 10/31/24 18:58 XR) metformin (From Xigduo XR) Allergy Mild Unknown Verified 10/31/24 18:58 Sulfa (Sulfonamide Allergy Unknown Unknown Verified 10/31/24 18:58 Antibiotics) doxycycline Allergy Other Verified 10/31/24 18:58 lisinopril AdvReac Intermediate Cough Verified 10/31/24 18:58 cefaclor AdvReac Unknown NAUSEA Verified 10/31/24 18:58 xyltophy Allergy Itching Uncoded 10/31/24 18:58 Review of Systems Review of Systems: CONSTITUTIONAL: Denies body aches, fever, chills, or sweats. CARDIOVASCULAR: Denies chest pain, palpitations, or edema. RESPIRATORY: Denies cough or dyspnea. GASTROINTESTINAL: Denies abdominal pain, nausea, vomiting, or diarrhea. GENITOURINARY: Reports dysuria, frequency, R sided flank pain. Denies urgency, hematuria, discharge. SKIN: Denies rash, itching, or wounds. MUSCULOSKELETAL: Denies back pain or myalgia. All systems reviewed & are unremarkable except as noted in HPI and below PMFSH Past Medical History Medical History History of PCOS Lumbar spondylosis with myelopathy BMI 30.0-30.9,adult Painful urination Anemia Anxiety Depression Arthritis UTI (urinary tract infection) Ovarian cyst Endometriosis Bronchitis COPD (chronic obstructive pulmonary disease) Cataracts, bilateral Ear infection Hypertension Diabetes Hypothyroidism Asthma Surgical History Surgical History Hx of oophorectomy lt ovary Hx of arthroscopy of right knee Hx of section History of hysterectomy Hx of tubal ligation Hx of appendectomy Family History Family History Father Diabetes mellitus Mother Diabetes mellitus Sibling Gastric bypass status for obesity Social History Social History Smoking status: Never smoker Second hand tobacco smoke exposure: Yes Alcohol intake: never Substance use: never Substance use type: does not use Lack of Transportation: No Lack of Food: Never True Current Housing: I Have Housing Concerned About Future Housing: No Difficulty Paying Gas/Electric Bills: YES Difficulty Paying for Meds: No Currently Unemployed: No Education: High School Diploma/GED Difficulty w/ Childcare or Family Care: No Living arrangements: with family Occupation/Education: occupation 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 Gender identity (if verbalized by the patient): Female Comments At time of signature, I have reviewed and agree with nursing past medical, surgical, social and family history unless otherwise noted. Please see nursing chart for further information. There is no relevant family history pertinent to the presenting complaint. Exam Narrative: GENERAL: Well-appearing and in no acute distress. ENT: Mucous membranes pink and moist. NECK: Normal AROM. Supple. CHEST: No respiratory distress. Clear to auscultation. HEART: Regular rate and rhythm. ABDOMEN: Soft, nontender, nondistended, normal active bowel sounds. No CVA tenderness. SKIN: Warm, dry, no rash. NEURO: No focal deficits. Alert and oriented x3. Gait steady. PSYCH: Normal affect. Course Course Level of Care: Express Care Visit Vital Signs Vital signs: Vital Signs Temperature 98 F 10/31/24 18:58 Pulse Rate 62 10/31/24 18:58 Respiratory Rate 16 10/31/24 18:58 Blood Pressure 148/67 H 10/31/24 18:58 Pulse Oximetry 100 10/31/24 18:58 Temperature 98 F 10/31/24 18:58 Pulse Rate 62 10/31/24 18:58 Respiratory Rate 16 10/31/24 18:58 Blood Pressure 148/67 H 10/31/24 18:58 Pulse Oximetry 100 10/31/24 18:58 Reviewed. MDM - Female Genitourinary MDM Narrative Medical decision making narrative: Discussed physical exam findings. Discussed in length to go to ER for further evaluation for the flank pain. Patient denied at this time. Advised supportive measures and signs/symptoms to go to the ER. Pt is appropriate for outpatient treatment and follow up. Differential Diagnosis Differential diagnosis: Likely urinary tract infection, bacterial vaginosis and other (kidney stone ) Critical Care Time Critical Care Time Critical Care Time: No Discharge Plan Discharge Clinical Impression: Urinary frequency Patient Disposition: Home Condition: Stable Instructions: Dysuria (ED) Additional Instructions: Your urine will be sent of for a culture to determine if bacteria is causing your symptoms. If the culture shows a UTI, you will be notified and an antibiotic will be called in for you. you will need to follow up with your PCP for further evaluation and treatment if symptoms persist, call today to schedule follow-up appointment. Go to the ER for any worsening symptoms or concerns. Patient Language: British Prescriptions: No Action amoxicillin-pot clavulanate 875-125 mg tablet 1 tablet PO Q12H 7 Days Qty: 14 0RF fluticasone propionate 50 mcg/actuation spray,suspension 2 spray NASAL DAILY Qty: 15.8 0RF Rx Instructions: administer into each nostril epinephrine 0.3 mg/0.3 mL auto-injector 0.3 mg IM ONCE Qty: 1 0RF Rx Instructions: as a single dose; may repeat once (DME) pen needle, diabetic [BD Ultra-Fine Ankita Pen Needle] 32 gauge x 5/32 needle See Rx Instructions .ROUTE .MEDSUPPLY Qty: 10 1RF Rx Instructions: use weekly tramadol 50 mg tablet 50 mg PO Q6H PRN (Reason: pain) Qty: 60 0RF famotidine [Pepcid] 20 mg tablet 20 mg PO .PRN diphenhydramine HCl [Benadryl] 25 mg capsule 25 mg PO Q6H PRN (Reason: allergic reaction) Qty: 20 0RF (DME) Compact Ultrasonic Nebulizer Misc See Rx Instructions .ROUTE .MEDSUPPLY Qty: 1 0RF Rx Instructions: As directed albuterol sulfate 2.5 mg /3 mL (0.083 %) solution for nebulization 2.5 mg INHALATION Q4H PRN (Reason: shortness of breath or wheezing) Qty: 90 0RF rosuvastatin [Crestor] 40 mg tablet 40 mg PO DAILY Qty: 90 3RF (DME) blood-glucose meter [OneTouch Verio Reflect] Kit See Rx Instructions .Route Qty: 1 0RF Rx Instructions: As directed (DME) OneTouch Verio test strips Strip See Rx Instructions .ROUTE .MEDSUPPLY Qty: 100 1RF Rx Instructions: check blood sugars twice a day (DME) lancets 33 gauge misc See Rx Instructions .ROUTE .MEDSUPPLY Qty: 100 1RF Rx Instructions: use twice daily Ozempic 2 mg/dose (8 mg/3 mL) pen injector 2 mg subcut WEEKLY Qty: 9 1RF sertraline 100 mg tablet See Rx Instructions .ROUTE .COMPLEX Qty: 90 1RF Dose Instruction: TAKE 1 TABLET BY MOUTH EVERY DAY Rx Instructions: TAKE 1 TABLET BY MOUTH EVERY DAY albuterol sulfate 90 mcg/actuation HFA aerosol inhaler See Rx Instructions .ROUTE .COMPLEX Qty: 2 1RF Dose Instruction: INHALE 2 PUFFS 4 TIMES A DAY NEEDED FOR SHORTNESS OF BREATH OR WHEEZING Rx Instructions: INHALE 2 PUFFS 4 TIMES A DAY NEEDED FOR SHORTNESS OF BREATH OR WHEEZING levothyroxine 137 mcg tablet See Rx Instructions .ROUTE .COMPLEX Qty: 90 1RF Dose Instruction: TAKE 1 TABLET BY MOUTH EVERY DAY Rx Instructions: TAKE 1 TABLET BY MOUTH EVERY DAY losartan 25 mg tablet See Rx Instructions .ROUTE .COMPLEX Qty: 90 0RF Dose Instruction: TAKE 1 TABLET BY MOUTH EVERY DAY Rx Instructions: TAKE 1 TABLET BY MOUTH EVERY DAY metoprolol succinate 25 mg tablet extended release 24 hr 25 mg PO DAILY Qty: 90 1RF Follow-up/Referrals: Koby Prince MD [Primary Care Provider] - Time of Disposition: 19:43
[2024-10-31 19:47] LABS: EDUAAPPEAR Cloudy; EDUABILI Negative (Negative); EDUABLOOD Negative (Negative); EDUACOLOR1 Light/Pale; EDUAGLUCOSE Negative (Negative); EDUAKETONE Negative (Negative); EDUALEUKO Trace (Negative); EDUANITRATE Negative (Negative); EDUAPROTEIN Negative (Negative); EDUAUROBILI 0.2
== END 2024-10-31 19:46 | disposition home or self-care (01) ==
PROVIDERS: PCP Family Medicine
DX: R35.0 Frequency of micturition (principal); I10 Essential (primary) hypertension; E11.9 Type 2 diabetes mellitus without complications; E28.2 Polycystic ovarian syndrome; M47.16 Other spondylosis with myelopathy, lumbar region; M19.90 Unspecified osteoarthritis, unspecified site; N80.9 Endometriosis, unspecified; J44.9 Chronic obstructive pulmonary disease, unspecified; E03.9 Hypothyroidism, unspecified; J45.909 Unspecified asthma, uncomplicated; F41.9 Anxiety disorder, unspecified; F32.A Depression, unspecified
CPT/HCPCS: 81003; 87086; 99213; G0463

== ENCOUNTER 2024-11-20 14:16 | Emergency (ER) | payer OTHER, SELFPAY ==
--- NOTE | ~2024-11-20 | XR_ITS ---
XR thoracic spine 3V 11/20/2024 15:34 Indication: Status post fall. Back pain. Procedure: 3 views thoracic spine Comparison: No prior studies Findings: There is mild dextrocurvature of the thoracic spine. Mild multilevel thoracic spondylosis. No acute fracture, subluxation or dislocation. No acute osseous abnormality. Impression: 1: Mild thoracic spondylosis. 2: No acute abnormality of the thoracic spine. Reviewed, dictated and finalized at location A. Impression: 1: Mild thoracic spondylosis. 2: No acute abnormality of the thoracic spine.
--- NOTE | ~2024-11-20 | XR_ITS ---
XR lumbar spine 2-3V 11/20/2024 16:17 Indication: Status post fall. Back pain. Procedure: 3 views lumbar spine Comparison: No prior studies for comparison. Findings: There is facet hypertrophy at L4-5 and L5-S1. There is grade 1 degenerative spondylolisthes is at L5-S1. Vertebral body heights are maintained. No acute fracture is identified. There is mild di sc narrowing at all lumbar levels. Pedicles intact. Sacral foramen are symmetric. There is hypertroph y of the spinous processes. Impression: 1: Mild-moderate lumbar spondylosis. Reviewed, dictated and finalized at location A. Impression: 1: Mild-moderate lumbar spondylosis.
[2024-11-20 14:32] VITALS: BP 128/76; PULSE 68; RESP 16; TEMP 36.9; O2SAT 99
--- NOTE | 2024-11-20 15:14 | ED_ITS ---
HPI - Back Pain/Injury General Chief Complaint: Back Pain/Injury Stated Complaint: FALL/BACK INJURY Time Seen by Provider: 11/20/24 14:20 Source: patient Mode of arrival: ambulatory Limitations: no limitations History of Present Illness HPI Narrative: Patient is a 59-year-old female who presents with back pain after slipping on deck stairs and landing on the stairs. Patient hit her mid back but is having pain from bra line down. Denies hitting her head, numbness, tingling or weakness to extremities. Patient has not taken anything for symptoms. Related Data Home Medications ?Medication ?Instructions ?Recorded ?Confirmed ?Last Taken ?Type famotidine 20 mg tablet (Pepcid) 20 mg PO .PRN 03/04/24 11/20/24 Unknown History Allergies Allergy/AdvReac Type Severity Reaction Status Date / Time codeine Allergy Mild Gastrointestinal Verified 11/20/24 14:32 Upset dapagliflozin (From Xig[facility] Allergy Mild Unknown Verified 11/20/24 14:32 XR) metformin (From Xig[facility] XR) Allergy Mild Unknown Verified 11/20/24 14:32 Sulfa (Sulfonamide Allergy Unknown Unknown Verified 11/20/24 14:32 Antibiotics) doxycycline Allergy Other Verified 11/20/24 14:32 lisinopril AdvReac Intermediate Cough Verified 11/20/24 14:32 cefaclor AdvReac Unknown NAUSEA Verified 11/20/24 14:32 xyltophy Allergy Itching Uncoded 11/20/24 14:32 Review of Systems 2 Review of Systems: All systems reviewed & are unremarkable except as noted in HPI and below Constitutional: Constitutional: Denies body ache(s), Denies chills, Denies fatigue, Denies fever(s), Denies headache(s), Denies malaise and Denies weakness Eyes: Eyes: Denies blurry vision, Denies irritation and Denies loss of vision ENT: Denies otalgia, Denies headache(s), Denies nasal discharge, Denies sinus pain and Denies sore throat Cardiovascular: Cardiovascular: Denies chest pain, Denies irregular heart rhythm and Denies dyspnea Respiratory: Respiratory: Denies dyspnea Gastrointestinal: Gastrointestinal: Denies abdominal pain, Denies melena, Denies hematochezia, Denies diarrhea, Denies nausea and Denies vomiting Musculoskeletal: Musculoskeletal: Reports back pain, Denies myalgias and Denies arthralgias Integumentary/Breasts: Skin/Breast: Denies pruritus and Denies rash Neurologic: Denies headache(s), Denies loss of vision and Denies weakness Psychiatric: Psychiatric: Reports no additional psychiatric complaints Endocrine: Endocrine: Denies fatigue PMFSH Past Medical History Medical History History of PCOS Lumbar spondylosis with myelopathy BMI 30.0-30.9,adult Painful urination Anemia Anxiety Depression Arthritis UTI (urinary tract infection) Ovarian cyst Endometriosis Bronchitis COPD (chronic obstructive pulmonary disease) Cataracts, bilateral Ear infection Hypertension Diabetes Hypothyroidism Asthma Surgical History Surgical History Hx of oophorectomy lt ovary Hx of arthroscopy of right knee Hx of section History of hysterectomy Hx of tubal ligation Hx of appendectomy Family History Family History Father Diabetes mellitus Mother Diabetes mellitus Sibling Gastric bypass status for obesity Social History Social History Smoking status: Never smoker Second hand tobacco smoke exposure: Yes Alcohol intake: never Substance use: never Substance use type: does not use Lack of Transportation: No Lack of Food: Never True Current Housing: I Have Housing Concerned About Future Housing: No Difficulty Paying Gas/Electric Bills: YES Difficulty Paying for Meds: No Currently Unemployed: No Education: High School Diploma/GED Difficulty w/ Childcare or Family Care: No Living arrangements: with family Occupation/Education: occupation 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 Gender identity (if verbalized by the patient): Female Comments At time of signature, agree with nursing past medical, surgical, social and family history. There is no relevant family history pertinent to the presenting complaint. Exam 2 Const: General: cooperative, healthy appearing, comfortable, no acute distress and well nourished Nutritional Appearance: well nourished O rientation/consciousness: patient oriented x3 Limitations: no limitations HENMT: Head: normal to inspection, normocephalic and atraumatic Ears: h earing grossly normal bilaterally and external ears normal Face/Nose/Sinus: N ormal external nose present, normal facial exam and face symmetric Face and sinus: normal facial exam and face symmetric Mouth: Yes lip normal Eyes: General: appearance normal, both eyes and all related structures A lignment and Position: alignment normal and position normal Periorbital: p eriorbital findings normal Eyelids: eyelids normal Pupils: Equal, round and reactive pupils present EOM: EOMs intact bilaterally Neck: Neck: normal visual inspection, full ROM and supple Chest: Chest palpation & inspection: normal inspection of the chest Resp: Effort & Inspection: normal respiratory effort and able to speak in complete sentences Auscultation: clear to auscultation bilaterally Cardio: Rate: regular rate Rhythm: regular rhythm Heart sounds: S1 normal heart sound present and S2 normal heart sound present GI: Inspection: normal to inspection Back/Spine/Pelvis: Cervical Spine: cervical ROM normal and No Cervical spine tenderness Thoracic/Lumbar Spine: thoracic and lumbar spine normal to inspection, paraspinal muscle tenderness bilaterally in the lower thoracic and in the upper lumbar, No thoracic spinal tenderness and No lumbar spinal tenderness Back/spine/pelvis image: 1. abrasion from step Skin: General skin exam: normal color and no rashes or lesions noted Neuro: General: patient oriented x3 and moves all extremities Cranial nerves: Yes Equal, round and reactive pupils present Cognition (Neuro): n ormal cognition Speech: normal speech Gait exam (Neuro): Normal gait present Motor exam (neuro): 5/5 motor strength present throughout, Normal motor muscle tone present throughout and Motor abnormalities not present S ensory Exam: normal sensation Extrem: General: normal to inspection, full ROM and no edema Psych: Appearance: grossly normal and well kempt Mental Status: mental status grossly normal Speech and movement: Normal speech and movement present Affect: normal affect Attitude: cooperative Thought process: Normal thought process present Course Course Emergency Course: Patient is aware of diagnosis, understands and agrees to treatment plan. Anticipatory guidance given. Patient agrees to follow-up as directed and is aware of reasons to seek care at the emergency department. Portions of this record may have been created with voice recognition software Level of Care: Express Care Visit Vital Signs Vital signs: Vital Signs Temperature 36.9 C 11/20/24 14:32 Pulse Rate 68 11/20/24 14:32 Respiratory Rate 16 11/20/24 14:32 Blood Pressure 128/76 11/20/24 14:32 Pulse Oximetry 99 11/20/24 14:32 Temperature 36.9 C 11/20/24 14:32 Pulse Rate 68 11/20/24 14:32 Respiratory Rate 16 11/20/24 14:32 Blood Pressure 128/76 11/20/24 14:32 Pulse Oximetry 99 11/20/24 14:32 Reviewed MDM - Back Pain/Injury MDM Narrative Medical decision making narrative: Pt well hydrated appearing, in no respiratory distress, hemodynamically stable. Recommend supportive care. The patient is stable at time of discharge the clinical impression was discussed and the patient was given the opportunity to ask questions, which were addressed as completely as possible given the information available at present. Anticipatory guidance and return to care precautions were discussed and the importance of primary care follow-up was stressed and encouraged. The patient voiced understanding of the plan, indications to return, and the need for follow-up. Exam findings show no acute concerns or changes Patient is appropriate for outpatient treatment and follow-up. Differential Diagnosis Differential diagnosis: Likely lumbar radiculopathy, sciatica, strain of lumbar region, thoracic back pain and other (fall) Medical Records Attestation: I reviewed the patient's medical records. Imaging Data Radiologist's impression: XR thoracic spine 3V 11/20/2024 15:34 Indication: Status post fall. Back pain. Procedure: 3 views thoracic spine Comparison: No prior studies Findings: There is mild dextrocurvature of the thoracic spine. Mild multilevel thoracic spondylosis. No acute fracture, subluxation or dislocation. No acute osseous abnormality. Impression: 1: Mild thoracic spondylosis. 2: No acute abnormality of the thoracic spine. LXR lumbar spine 2-3V 11/20/2024 16:17 Indication: Status post fall. Back pain. Procedure: 3 views lumbar spine Comparison: No prior studies for comparison. Findings: There is facet hypertrophy at L4-5 and L5-S1. There is grade 1 degenerative spondylolisthesis at L5-S1. Vertebral body heights are maintained. No acute fracture is identified. There is mild disc narrowing at all lumbar levels. Pedicles intact. Sacral foramen are symmetric. There is hypertrophy of the spinous processes. Impression: 1: Mild-moderate lumbar spondylosis. Discharge Plan Discharge Clinical Impression: Back pain, Fall Patient Disposition: Home Condition: Stable Instructions: Back Pain (ED), Fall Prevention (ED) Additional Instructions: You reported you fell.After any fall we expect you to be very sore over the next several days to 1 week. This is because your body was moved in different directions. Also sometimes people tense up during a fall. Either way, the muscles were strained after a fall and can be expected to be sore. This soreness is usually worse on the 2nd, 3rd and 4th days following a fall. Take the Tylenol as directed to help with pain and to decrease inflammation.Using Topicals such as biofreeze, bengay or aspercream will also help. Take the Baclofen as directed for muscle spasms. Do not drink, drive, operate machinery or do anything dangerous while taking this medication. It can make you sleepy.Drink plenty of fluids and get plenty of rest to help your body heal.Follow up with PCP in 7-10 days.Return to ER for problems. Patient Language: Mauritanian Prescriptions: New baclofen 10 mg tablet 10 mg PO BID Qty: 10 0RF ibuprofen 600 mg tablet 600 mg PO TID PRN (Reason: pain) Qty: 50 0RF No Action fluticasone propionate 50 mcg/actuation spray,suspension 2 spray NASAL DAILY Qty: 15.8 0RF Rx Instructions: administer into each nostril epinephrine 0.3 mg/0.3 mL auto-injector 0.3 mg IM ONCE Qty: 1 0RF Rx Instructions: as a single dose; may repeat once (DME) pen needle, diabetic [BD Ultra-Fine Ankita Pen Needle] 32 gauge x 5/32 needle See Rx Instructions .ROUTE .MEDSUPPLY Qty: 10 1RF Rx Instructions: use weekly famotidine [Pepcid] 20 mg tablet 20 mg PO .PRN diphenhydramine HCl [Benadryl] 25 mg capsule 25 mg PO Q6H PRN (Reason: allergic reaction) Qty: 20 0RF (DME) Compact Ultrasonic Nebulizer Misc See Rx Instructions .ROUTE .MEDSUPPLY Qty: 1 0RF Rx Instructions: As directed albuterol sulfate 2.5 mg /3 mL (0.083 %) solution for nebulization 2.5 mg INHALATION Q4H PRN (Reason: shortness of breath or wheezing) Qty: 90 0RF rosuvastatin [Crestor] 40 mg tablet 40 mg PO DAILY Qty: 90 3RF (DME) blood-glucose meter [OneTouch Verio Reflect] Kit See Rx Instructions .Route Qty: 1 0RF Rx Instructions: As directed (DME) OneTouch Verio test strips Strip See Rx Instructions .ROUTE .MEDSUPPLY Qty: 100 1RF Rx Instructions: check blood sugars twice a day (DME) lancets 33 gauge misc See Rx Instructions .ROUTE .MEDSUPPLY Qty: 100 1RF Rx Instructions: use twice daily sertraline 100 mg tablet See Rx Instructions .ROUTE .COMPLEX Qty: 90 1RF Dose Instruction: TAKE 1 TABLET BY MOUTH EVERY DAY Rx Instructions: TAKE 1 TABLET BY MOUTH EVERY DAY albuterol sulfate 90 mcg/actuation HFA aerosol inhaler See Rx Instructions .ROUTE .COMPLEX Qty: 2 1RF Dose Instruction: INHALE 2 PUFFS 4 TIMES A DAY NEEDED FOR SHORTNESS OF BREATH OR WHEEZING Rx Instructions: INHALE 2 PUFFS 4 TIMES A DAY NEEDED FOR SHORTNESS OF BREATH OR WHEEZING levothyroxine 137 mcg tablet See Rx Instructions .ROUTE .COMPLEX Qty: 90 1RF Dose Instruction: TAKE 1 TABLET BY MOUTH EVERY DAY Rx Instructions: TAKE 1 TABLET BY MOUTH EVERY DAY losartan 25 mg tablet See Rx Instructions .ROUTE .COMPLEX Qty: 90 0RF Dose Instruction: TAKE 1 TABLET BY MOUTH EVERY DAY Rx Instructions: TAKE 1 TABLET BY MOUTH EVERY DAY metoprolol succinate 25 mg tablet extended release 24 hr 25 mg PO DAILY Qty: 90 1RF Ozempic 2 mg/dose (8 mg/3 mL) pen injector 2 mg subcut WEEKLY Qty: 9 0RF Rx Instructions: NEEDS APPOINTMENT Follow-up/Referrals: Koby Prince MD [Primary Care Provider] - Stand Alone Forms: Work/School Release IP Time of Disposition: 16:25
== END 2024-11-20 16:29 | disposition home or self-care (01) ==
PROVIDERS: Emergency Provider Nurse Practitioner Family; PCP Family Medicine
DX: M54.6 Pain in thoracic spine (principal); M54.50 Low back pain, unspecified; I10 Essential (primary) hypertension; E11.9 Type 2 diabetes mellitus without complications; Z79.85 Long-term (current) use of injectable non-insulin antidiabetic drugs; J44.9 Chronic obstructive pulmonary disease, unspecified; E28.2 Polycystic ovarian syndrome; M19.90 Unspecified osteoarthritis, unspecified site; N80.9 Endometriosis, unspecified; E03.9 Hypothyroidism, unspecified; J45.909 Unspecified asthma, uncomplicated; M47.16 Other spondylosis with myelopathy, lumbar region; F41.9 Anxiety disorder, unspecified; F32.A Depression, unspecified
CPT/HCPCS: 72072; 72100; 99213; G0463

== ENCOUNTER 2025-01-11 14:17 | Outpatient (CLI) | payer OTHER, SELFPAY ==
--- OUTSIDE RECORDS SUMMARY | 2025-01-11 14:20 | XMS_ITS | Clinical Summary ---
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 Name Role Phone Koby Prince MD Primary Care Provider [phone] Allergies Active Allergy Reactions Criticality Noted Date Comments Codeine Palpitations Low 03/07/2023 Sulfa Antibiotics Palpitations Low 03/07/2023 Medications methylPREDNISol mickey CIARA, (MEDROL DOSEPAK) 4 MG tablet 6 TABLETS ON DAY ONE, 5 TABLETS DAY TWO, 4 TABLETS DAY THREE, 3 TABLETS DAY FOUR, 2 TABLETS DAY FIVE, AND 1 TABLET DAY SIX 1 each 03/07/2023 Active Social History Tobacco Use Types Packs/Day Years Used Date Smoking Tobacco: Never Smokeless Tobacco: Never Tobacco Cessation:Counseling Given: Not Answered Alcohol Use Standard Drinks/Week Comments Never 0 (1 standard drink = 0.6 oz pur e alcohol) Comments Unknown Sex and Gender Information Value Date Recorded Sex Assigned at Not on file Legal Sex Female 8:10 PM CDT Gender Identity Not on file Sexual Orientation Not on file Last Filed Vital Signs Vital Sign Reading Time Taken Comments Blood Pressure 157/75 03/07/2023 4:05 PM CDT Pulse 69 03/07/2023 4:05 PM CDT Temperature 36.7 C (98.1 F) 03/07/2023 4:05 PM CDT Respiratory Rate 16 03/07/2023 4:05 PM CDT Oxygen Saturation 98% 03/07/2023 4:05 PM CDT Inhaled Oxygen Concentration - - Weight 78.5 kg (173 lb) 03/07/2023 4:05 PM CDT Height 160 cm (5' 3) 03/07/2023 4:05 PM CDT Body Mass Index 30.65 03/07/2023 4:05 PM CDT Plan of Treatment Health Maintenance Due Date Last Done Comments Cervical Cancer Screening Pa p Smear (Age 30 to 64) Every 3 Years 1964 Colorectal Cancer Screening Colonoscopy (10 Years) 1964 Annual Physical 1967 Hepatitis C 1982 Cervical Cancer Screening Pa p with HPV Testing (Age 30 to 64) Every 5 Years 1994 Cervical Cancer Screening wi th HPV 1994 Mammogram Screening 2004 Zoster Vaccines (1 of 2) 2014 Pneumococcal Vaccine: 50+ Years (2 of 2 - PPSV23) 03/16/2016 03/16/2015 COVID-19 Vaccine ( - 2023-2 5 season) 2024 DTaP, Tdap and Td Vaccines ( 3 - Td or Tdap) 03/10/2031 03/10/2021, 12/26/2009 RSV Immunization or 60+ Years (1 - 1-dose 75+ series) 2039 Meningococcal B Vaccine Aged Out No l onger eligible based on patient's age to complete this topic Meningococcal Vaccine Aged Out No renay precious eligible based on patient's age to complete this topic RSV Immunizations Under 20 Months Aged Out No longer eligible b ased on patient's age to complete this topic Insurance Care Teams Nylon Machine Operator Relationship Specialty Start Date End Date Koby Prince MD [address] [place] [address] PCP - General FAMILY PRACTICE 03/07/23
--- OUTSIDE RECORDS SUMMARY | 2025-01-11 14:20 | XMS_ITS | Referral Summary ---
Author Organization [facility] Address [address] [place] [address] Care Team Providers [facility] [employer] Name Role Phone Yoshi Pulido MD Primary Care Provider [phone] Allergies Active Allergy Reactions Criticality Noted Date Comments Canagliflozin Codeine Palpitations Reaction: Palpitations, , , , Sulfa Nausea only,Vomiting Reaction: Nausea, Vomiting, Sulfa (Sulfonamide Antibiotics) Medications estradiol (CLIMARA) 0.05 mg/24 hr APPLY 1 PATCH TO CLEAN DRY SKIN ONCE EVERY WEEK - CHANGE WEEKLY 0 10/09/2016 Active albuterol HFA (VENTOLIN HFA) 90 mcg/actuation inhaler Inhale 2 puffs every 4 (four) hours as needed for wheezing. 1 Inhaler 2 03/28/2017 Active ALPRAZolam (XANAX) 0.25 mg tablet Take 1 tablet (0.25 mg total) by mouth 3 (three) times a day as needed for anxiety. 90 tablet 1 10/07/2017 Active ONETOUCH VERIO strip TEST BLOOD SUGAR DAILY 100 each 1 11/01/2017 Active insulin degludec-liraglu tide 100 unit-3.6 mg /mL (3 mL) insulin penIndications:T ype 2 diabetes mellitus with other circulatory complication, unspecified whether usp insulin use (HCC) Inject 10 Units under the skin daily. 10 Syringe 2 12/16/2017 Active levothyroxine (SYNTHROID, LEVOTHROID) 125 mcg tablet TAKE 1 TABLET (125 MCG TOTAL) BY MOUTH DAILY. 90 tablet 1 03/11/2018 Active losartan (COZAAR) 25 mg tablet TAKE 1 TABLET BY MOUTH DAILY. 90 tablet 06/05/2018 Active metoprolol XL (TOPROL-XL) 25 mg 24 hr tablet TAKE 1 TABLET BY MOUTH EVERY DAY 90 tablet 1 08/19/2018 Active sertraline (ZOLOFT) 25 mg tablet TAKE 3 TABLETS BY MOUTH DAILY. 270 tablet 08/29/2018 Active XIGDUO XR 10-1,000 mg tablet, IR & ER, biphasic 24hr TAKE 1 TABLET BY MOUTH EVERY DAY 90 tablet 1 07/20/2019 Active Active Problems Problem Noted Date Diagnosed Date Pneumonia due to infectious organism 06/27/2017 Assessment & Plan (07/07/2017 2:34 PM HUMAN RESOURCE MANAGEMENT INSTRUCTOR): Reviewed hospital admission discharge treatment plan diagnostic laboratory referrals Reconciled medication allergies Written plan was given to the patient for rtov Maintain adequate clear fluid intake. May use [id number] acetaminophen or ibuprofen. Medication instructions were provided to the patient. The risks and benefits of the treatment plan were discussed with the patient. Signs and symptoms of emergency were discussed with the patient. Minimize close contact with other individuals. Prescriptions sent to pharmacy cool mist humidifier ocean spray nasal rest call for no resolution or exacerbation or po intolerance Painful urination 04/25/2017 Assessment & Plan (04/25/2017 1:51 PM HUMAN RESOURCE MANAGEMENT INSTRUCTOR): A urinalysis did reveal 5-10 white blood cells a culture will be obtained the patient was placed on Macrobid when she has completed 7 days of Macrobid I have suggested taking 1 tablet after intercourse as needed Adult general medical examination 01/15/2017 Assessment & Plan (01/15/2017 6:46 AM CDT): patient presents for annual exam ekg noted labs pending get copy of living will to pcp encourage annual [facility] mammogram and every other year dexa encourage follow gi for scheduled colonoscopy and egd if indicated encourage annual eye exam and dental minimum 2 times year encourage balance nutrition utilizing platemethod.gov and exercise 5 days a week. Neoplasm, uncertain whether benign or malignant 01/08/2017 Assessment & Plan (01/08/2017 11:54 AM CDT): Consult dermatology BMI 33.0-33.9,adult 12/25/2016 Assessment & Plan (10/29/2017 3:13 PM CDT): BMI Follow-up includes: nutrition counseling, exercise counseling and education provided. Assessment & Plan (07/07/2017 2:35 PM HUMAN RESOURCE MANAGEMENT INSTRUCTOR): BMI Follow-up includes: nutrition counseling, exercise counseling and education provided. Assessment & Plan (01/15/2017 6:43 AM CDT): BMI Follow-up includes: nutrition counseling, exercise counseling and education provided. Assessment & Plan (01/04/2017 8:36 AM CDT): BMI Follow-up includes: nutrition counseling, exercise counseling and education provided. Assessment & Plan (12/25/2016 1:52 PM CDT): BMI Follow-up includes: nutrition counseling, exercise counseling and education provided. Type 2 diabetes, controlled, with peripheral carlyn ropathy 12/25/2016 Assessment & Plan (10/29/2017 3:14 PM CDT): Improving Stable Lab pending Reviewed past medication, medical, surgical, family, social, nutrition and activity history. Reivewed smbg food diary. Education for progression of diabetes from hyperinsulinemia to requiring insulin. Education on lifestyle modification to reduce those risk, carbohydrate counting, label reading, need 3g fiber in all grains or more, rx 6-10 low carbohydrate vegetable servings a day, 2-3 dairy, 2-3 protien lean, 45-50g tid and 15g snack bid. We disussed need for smbg and was rx we discussed need for food diary and utilizing the diary as a tool to plan meals. We discussed need for eating meals same time each day eating the same number of carbohydrates each meal to maintain glucose. Medication prescribed today the risk and benefits were discussed . Education for diabetic sick day, education for contacting the Nurse Practitioner , discussed need for nightly foot checks, adequate foot care, appropriate shoe fitting type and structure, never wear shoes without socks to avoid skin injury Assessment & Plan (01/15/2017 6:45 AM CDT): Reviewed past medication, medical, surgical, family, social, nutrition and activity history. Reivewed smbg food diary. Education for progression of diabetes from hyperinsulinemia to requiring insulin. Education on lifestyle modification to reduce those risk, carbohydrate counting, label reading, need 3g fiber in all grains or more, rx 6-10 low carbohydrate vegetable servings a day, 2-3 dairy, 2-3 protien lean, 45-50g tid and 15g snack bid. We disussed need for smbg and was rx we discussed need for food diary and utilizing the diary as a tool to plan meals. We discussed need for eating meals same time each day eating the same number of carbohydrates each meal to maintain glucose. Medication prescribed today the risk and benefits were discussed . Education for diabetic sick day, education for contacting the Nurse Practitioner , discussed need for nightly foot checks, adequate foot care, appropriate shoe fitting type and structure, never wear shoes without socks to avoid skin injury Assessment & Plan (12/31/2016 2:20 PM CDT): Diabetes is unchanged. Continue current treatment regimen. Reminded to bring in blood sugar diary at next visit. Dietary recommendations for ADA diet. Regular aerobic exercise. Discussed ways to avoid symptomatic hypoglycemia. Discussed sick day management. Discussed foot care. Reminded to get yearly retinal exam. Diabetes will be reassessed in 3 months. Sleep disturbance 12/25/2016 Assessment & Plan (01/15/2017 6:44 AM CDT): Order sleep study encourage to fu pulmonary for sleep evaluation as scheduled encourage to use cpap as rx education risk benefits side affects of nonadherance Assessment & Plan (12/31/2016 2:19 PM CDT): encourage to [facility] pulmonary for sleep evaluation as scheduled encourage to use cpap as rx education risk benefits side affects of nonadherance Urinary tract infection without hematuria 2016 Assessment & Plan (01/15/2017 6:45 AM CDT): May need to see urogynecology Labs reviewed Assessment & Plan (01/04/2017 8:39 AM CDT): rx sent to pharmacy education for use risk benefits Do not have intercourse while still having s/s or until we know the infection has cleared Drink one gallon of water Call for fcnvd worse s/s go to [facility] er or come to ov Consult urology Assessment & Plan (12/31/2016 2:20 PM CDT): rx sent to pharmacy education for use risk benefits Do not have intercourse while still having s/s or until we know the infection has cleared Drink one gallon of water Call for fcnvd worse s/s go to [facility] er or come to ov Consult urology Microalbuminuria 12/27/2015 Assessment & Plan (10/29/2017 3:14 PM CDT): Reviewed all diagnostics surgery referrals laboratory Answer all questions Control chronic disease Stable lab pending avoid all advil/ibuprofen and aleve/naproxen stay well hydrated avoid soft drinks lab pending call for any change or new symptoms Type 2 diabetes mellitus with circulatory disord er 10/11/2015 Overview (09/21/2016): Diabetes mellitus with proteinuria Assessment & Plan (10/29/2017 3:14 PM CDT): Improving Stable Lab pending Reviewed past medication, medical, surgical, family, social, nutrition and activity history. Reivewed smbg food diary. Education for progression of diabetes from hyperinsulinemia to requiring insulin. Education on lifestyle modification to reduce those risk, carbohydrate counting, label reading, need 3g fiber in all grains or more, rx 6-10 low carbohydrate vegetable servings a day, 2-3 dairy, 2-3 protien lean, 45-50g tid and 15g snack bid. We disussed need for smbg and was rx we discussed need for food diary and utilizing the diary as a tool to plan meals. We discussed need for eating meals same time each day eating the same number of carbohydrates each meal to maintain glucose. Medication prescribed today the risk and benefits were discussed . Education for diabetic sick day, education for contacting the Nurse Practitioner , discussed need for nightly foot checks, adequate foot care, appropriate shoe fitting type and structure, never wear shoes without socks to avoid skin injury See orders Assessment & Plan (07/07/2017 2:34 PM HUMAN RESOURCE MANAGEMENT INSTRUCTOR): Stable Lab pending Reviewed past medication, medical, surgical, family, social, nutrition and activity history. Reivewed smbg food diary. Education for progression of diabetes from hyperinsulinemia to requiring insulin. Education on lifestyle modification to reduce those risk, carbohydrate counting, label reading, need 3g fiber in all grains or more, rx 6-10 low carbohydrate vegetable servings a day, 2-3 dairy, 2-3 protien lean, 45-50g tid and 15g snack bid. We disussed need for smbg and was rx we discussed need for food diary and utilizing the diary as a tool to plan meals. We discussed need for eating meals same time each day eating the same number of carbohydrates each meal to maintain glucose. Medication prescribed today the risk and benefits were discussed . Education for diabetic sick day, education for contacting the Nurse Practitioner , discussed need for nightly foot checks, adequate foot care, appropriate shoe fitting type and structure, never wear shoes without socks to avoid skin injury See orders Assessment & Plan (01/15/2017 6:45 AM CDT): Reviewed past medication, medical, surgical, family, social, nutrition and activity history. Reivewed smbg food diary. Education for progression of diabetes from hyperinsulinemia to requiring insulin. Education on lifestyle modification to reduce those risk, carbohydrate counting, label reading, need 3g fiber in all grains or more, rx 6-10 low carbohydrate vegetable servings a day, 2-3 dairy, 2-3 protien lean, 45-50g tid and 15g snack bid. We disussed need for smbg and was rx we discussed need for food diary and utilizing the diary as a tool to plan meals. We discussed need for eating meals same time each day eating the same number of carbohydrates each meal to maintain glucose. Medication prescribed today the risk and benefits were discussed . Education for diabetic sick day, education for contacting the Nurse Practitioner , discussed need for nightly foot checks, adequate foot care, appropriate shoe fitting type and structure, never wear shoes without socks to avoid skin injury Assessment & Plan (01/04/2017 8:38 AM CDT): Reviewed past medication, medical, surgical, family, social, nutrition and activity history. Reivewed smbg food diary. Education for progression of diabetes from hyperinsulinemia to requiring insulin. Education on lifestyle modification to reduce those risk, carbohydrate counting, label reading, need 3g fiber in all grains or more, rx 6-10 low carbohydrate vegetable servings a day, 2-3 dairy, 2-3 protien lean, 45-50g tid and 15g snack bid. We disussed need for smbg and was rx we discussed need for food diary and utilizing the diary as a tool to plan meals. We discussed need for eating meals same time each day eating the same number of carbohydrates each meal to maintain glucose. Medication prescribed today the risk and benefits were discussed . Education for diabetic sick day, education for contacting the Nurse Practitioner , discussed need for nightly foot checks, adequate foot care, appropriate shoe fitting type and structure, never wear shoes without socks to avoid skin injury Assessment & Plan (12/31/2016 2:20 PM CDT): Reviewed past medication, medical, surgical, family, social, nutrition and activity history. Reivewed smbg food diary. Education for progression of diabetes from hyperinsulinemia to requiring insulin. Education on lifestyle modification to reduce those risk, carbohydrate counting, label reading, need 3g fiber in all grains or more, rx 6-10 low carbohydrate vegetable servings a day, 2-3 dairy, 2-3 protien lean, 45-50g tid and 15g snack bid. We disussed need for smbg and was rx we discussed need for food diary and utilizing the diary as a tool to plan meals. We discussed need for eating meals same time each day eating the same number of carbohydrates each meal to maintain glucose. Medication prescribed today the risk and benefits were discussed . Education for diabetic sick day, education for contacting the Nurse Practitioner , discussed need for nightly foot checks, adequate foot care, appropriate shoe fitting type and structure, never wear shoes without socks to avoid skin injury Family history of malignant neoplasm of urinary bladder 10/11/2015 Overview (09/21/2016): Family history of bladder cancer Assessment & Plan (01/15/2017 6:43 AM CDT): Reviewed all diagnostics surgery referrals laboratory Answer all questions Call for any change elimination Assessment & Plan (01/04/2017 8:37 AM CDT): Indication for good bladder health including avoiding soft drinks especially diet and increase her water intake without additives control her chronic disease and call for any signs and symptoms Hypertension due to endocrine disorder 6 Overview (09/21/2016): Hypertension associated with diabetes Assessment & Plan (07/07/2017 2:34 PM HUMAN RESOURCE MANAGEMENT INSTRUCTOR): Hypertension is unchanged. Continue current treatment regimen. Dietary sodium restriction. Weight loss. Regular aerobic exercise. Ambulatory blood pressure monitoring. Blood pressure will be reassessed at the next regular appointment. dash diet and exercise and continue current medication asa 81mg po qd fu 2-3 months for labs and bp evaluation encourage home monitoring of blood pressure call for less than 115/60 or greater than 140/85 heart rate less than 60 or greater than 90, education that some blood pressure medication increase risk of sun burn use sun screen hat and sleeves See orders Assessment & Plan (01/15/2017 6:44 AM CDT): Hypertension is improving with treatment. Continue current treatment regimen. Dietary sodium restriction. Weight loss. Regular aerobic exercise. Continue current medications. Ambulatory blood pressure monitoring. Blood pressure will be reassessed in 3 months. Assessment & Plan (01/04/2017 8:38 AM CDT): dash diet and exercise and continue current medication asa 81mg po qd fu 2-3 months for labs and bp evaluation encourage home monitoring of blood pressure call for less than 115/60 or greater than 140/85 heart rate less than 60 or greater than 90, education that some blood pressure medication increase risk of sun burn use sun screen hat and sleeves Assessment & Plan (12/31/2016 2:18 PM CDT): dash diet and exercise and continue current medication asa 81mg po qd fu 2-3 months for labs and bp evaluation encourage home monitoring of blood pressure call for less than 115/60 or greater than 140/85 heart rate less than 60 or greater than 90, education that some blood pressure medication increase risk of sun burn use sun screen hat and sleeves 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 09/14/2015 Overview (09/21/2016): Peripheral neuropathy due to metabolic disorder Assessment & Plan (10/29/2017 3:14 PM CDT): Do not go barefoot Wear supportive shoes and sock Never wear shoes without socks Check feet nightly Call for any change Fu podiatry Assessment & Plan (01/15/2017 6:44 AM CDT): Do not go barefoot Wear supportive shoes and sock Never wear shoes without socks Check feet nightly Call for any change Fu podiatry Assessment & Plan (12/31/2016 2:19 PM CDT): Do not go barefoot Wear supportive shoes and sock Never wear shoes without socks Check feet nightly Call for any change Fu podiatry Hyperlipidemia due to type 2 diabetes mellitus 0 09/14/2015 Overview (09/21/2016): Hyperlipidemia due to type 2 diabetes mellitus Assessment & Plan (10/29/2017 3:13 PM CDT): Lipid abnormalities are unchanged. Nutritional counseling was provided. and Pharmacotherapy as ordered. Lipids will be reassessed in 3 months see orders. Assessment & Plan (07/07/2017 2:33 PM HUMAN RESOURCE MANAGEMENT INSTRUCTOR): Lipid abnormalities are unchanged. Nutritional counseling was provided. and Pharmacotherapy as ordered. Lipids will be reassessed in 3 months. Assessment & Plan (01/15/2017 6:43 AM CDT): Lipid abnormalities are improving with treatment. Nutritional counseling was provided. and Pharmacotherapy as ordered. Lipids will be reassessed in 6 months. Assessment & Plan (01/04/2017 8:38 AM CDT): Patient is fasting today her fasting labs will be sent for follow-up for her annual physical next week we discussed nutrition and lifestyle modification to his sister in controlling her hyperlipidemia with her high risk family history of premature cardiovascular disease and target damage Continue the medication follow-up next week Assessment & Plan (12/31/2016 2:18 PM CDT): Lipid abnormalities are improving with treatment. Nutritional counseling was provided. and Pharmacotherapy as ordered. Lipids will be reassessed in 3 months. Grief 09/14/2015 Overview (09/21/2016): Grief at loss of child Assessment & Plan (01/15/2017 6:43 AM CDT): Increase activity. Stick to prescribed nutrition plan, take prescriptions as instructed, call for any thought of suicide or homocidal ideation or anger outburst. Ensure 8hrs sleep if not getting this call to discuss so we can adjust medication Assessment & Plan (12/31/2016 2:18 PM CDT): Increase activity. Stick to prescribed nutrition plan, take prescriptions as instructed, call for any thought of suicide or homocidal ideation or anger outburst. Ensure 8hrs sleep if not getting this call to discuss so we can adjust medication Severe episode of recurrent major depressive disorder, without psychotic features 09/14/2015 Overview (09/21/2016): Severe episode of recurrent major depressive disorder, without psychotic features Assessment & Plan (01/15/2017 6:44 AM CDT): Psychological condition is unchanged. Continue current treatment regimen. Regular aerobic exercise. Psychological condition will be reassessed in 3 months. Assessment & Plan (12/31/2016 2:19 PM CDT): Increase activity. Stick to prescribed nutrition plan, take prescriptions as instructed, call for any thought of suicide or homocidal ideation or anger outburst. Ensure 8hrs sleep if not getting this call to discuss so we can adjust medication See orders Visual disturbance 09/14/2015 Overview (09/21/2016): Visual changes Assessment & Plan (01/15/2017 6:46 AM CDT): Control chronic disease and fu with opthalmology Cervical radiculopathy 04/08/2015 Overview (09/21/2016): Cervical radiculopathy Assessment & Plan (12/31/2016 2:18 PM CDT): Ice posterior neck, Rest with periods of walking. Prescription sent to pharmacy take as directed. All risk and benefits were discussed with patient. Diagnosting testing pending. Report any changes of vision, balance, speech, swallowing, memory or mental status changes. Patient verbalized understanding agrees with plan of care Reviewed all diagnostics surgery referrals laboratory Answer all questions Abdominal mass 04/27/2013 Thyroid activity decreased 04/08/2013 Asthma 02/12/2013 Overview (09/19/2016): Asthma Assessment & Plan (10/29/2017 3:13 PM CDT): Stable keep immunization up to date use rx as education report any side affects treat allergies and sinus before exacerbation call for any change Assessment & Plan (01/15/2017 6:42 AM CDT): Asthma is unchanged. The patient is experiencing no daytime asthma symptoms. She is experiencing no nighttime asthma symptoms. Asthma information handout given. Patient to keep asthma diary. Discussed monitoring symptoms and use of quick-relief medications and contacting us early in the course of exacerbations. Warning signs of respiratory distress were reviewed with the patient. Reduce exposure to inhaled allergens: use impermeable mattress and pillow covers, wash bedding weekly in water > 130'F to kill dust mites, vacuum 2x/week (the patient should not do the vacuuming), remove carpets in bedroom, remove carpets overlying concrete, avoid lying on upholstered furniture, wash stuffed animals regularly if kept in bed, don't use humidifiers (may increased dust & mold), keep pets out of bedroom with bedroom door closed, keep pets off furniture and wash pet weekly. Counseled to void exposure to cigarette smoke. Discussed medication dosage, use, side effects, and goals of treatment in detail. Keep immunization up to date keep immunization up to date use rx as education report any side affects treat allergies and sinus before exacerbation call for any change Hypothyroidism 02/12/2013 Overview (09/19/2016): Hypothyroid Assessment & Plan (10/29/2017 3:13 PM CDT): Continue current medical management Education to stop medication can contribute to serious consequences and subsequent health issues Labs pending Call for change vision tremors fatigue malaise dry skin or mood swing Assessment & Plan (07/07/2017 2:34 PM HUMAN RESOURCE MANAGEMENT INSTRUCTOR): Continue current medical management Education to stop medication can contribute to serious consequences and subsequent health issues Labs pending Call for change vision tremors fatigue malaise dry skin or mood swing See orders Assessment & Plan (01/15/2017 6:44 AM CDT): Continue current medical management Education to stop medication can contribute to serious consequences and subsequent health issues Labs pending Call for change vision tremors fatigue malaise dry skin or mood swing Assessment & Plan (01/04/2017 8:38 AM CDT): Continue current medical management Education to stop medication can contribute to serious consequences and subsequent health issues Labs pending Call for change vision tremors fatigue malaise dry skin or mood swing Assessment & Plan (12/31/2016 2:19 PM CDT): Continue current medical management Education to stop medication can contribute to serious consequences and subsequent health issues Labs pending Call for change vision tremors fatigue malaise dry skin or mood swing Resolved Problems Problem Noted Date Diagnosed Date Resolved Date Polyneuropathy associated wi th another disorder 10/11/2015 12/25/2016 Overview (09/21/2016): Polyneuropathy associated with underlying disease Diabetic dyslipidemia associ ated with type 2 diabetes mellitus 10/11/2015 12/25/2016 Overview (09/21/2016): Hyperlipidemia associated with type 2 diabetes mellitus Bladder pain 10/11/2015 12/25/2016 Overview (09/21/2016): Bladder pain Type 2 diabetes mellitus 10/11/201504/2017 Overview (09/21/2016): Type 2 diabetes mellitus with autonomic neuropathy Mononeuropathy associated wi th type II diabetes mellitus 09/14/2015 12/25/2016 Overview (09/21/2016): Type 2 diabetes mellitus with diabetic neuropathy Right upper quadrant abdominal pain 09/14/2015 12/25/2016 Overview (09/21/2016): RUQ pain Inflammation of rotator cuff tendon 04/08/2015 12/25/2016 Overview (09/21/2016): Rotator cuff tendonitis Hyperlipoproteinemia 04/08/2013 018 Diabetes mellitus 04/08/2013 10/21/2017 Hypertension 04/08/2013 10/21/2017 Pelvic mass 04/03/2013 12/25/2016 Overview (09/19/2016): Pelvic mass Atopic rhinitis 03/20/2013 12/25/2016 Overview (09/20/2016): Allergic rhinitis Abdominal pain 03/20/2013 12/25/2016 Overview (09/21/2016): Abdominal pain, unspecified site Depression 02/12/2013 12/25/2016 Overview (09/19/2016): Depression Hyperlipidemia 02/12/2013 12/25/2016 Overview (09/19/2016): Hyperlipidemia Dyssomnia 02/12/2013 12/25/2016 Overview (09/20/2016): Sleep disturbance Chest pain 02/12/2013 12/25/2016 Overview (09/20/2016): Chest pain Immunizations Immunization Administration Dates Next Due DTaP, Unspecified 12/26/2009 Influenza, Quadrivalent, Split, Intramuscular Influenza, Quadrivalent, Spl it, Preservative Free, Intramuscular 04/22/2017 Influenza, Split 03/20/2013 Influenza, Trivalent, High D ose, Split, Preservative Free, Intramuscular 03/17/2014 Influenza, Trivalent, Recomb inant, Egg Free, Preservative Free, Antibiotic Free, IM (FLUBLOK) 03/16/2015 Pneumococcal Conjugate PCV 13 03/16/2015 Social History Tobacco Use Types Packs/Day Years Used Date Smoking Tobacco: Smoker, Current Status Unknown Cigarettes Last atte mpted to quit: 06/17/1985 Comments:Smoking History Pac ks/day: 1 Packs Alcohol Use Standard Drinks/Week Comments No 0 (1 standard drink = 0.6 oz pur e alcohol) Comments Unknown Sex and Gender Information Value Date Recorded Sex Assigned at Not on file Legal Sex Female 11:58 PM HUMAN RESOURCE MANAGEMENT 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 Gender Identity Not on file Sexual Orientation Not on file Last Filed Vital Signs Vital Sign Reading Time Taken Comments Blood Pressure 120/80 10/21/2017 11:35 AM CDT Pulse 60 10/21/2017 11:35 AM CDT Temperature 36.8 C (98.3 F) 06/27/2017 9:53 AM HUMAN RESOURCE MANAGEMENT INSTRUCTOR Respiratory Rate 18 10/21/2017 11:35 AM CDT Oxygen Saturation 98% 10/21/2017 11:35 AM CDT Inhaled Oxygen Concentration - - Weight 86.2 kg (190 lb) 10/21/2017 11:35 AM CDT Height 157.5 cm (5' 2) 10/21/2017 11:35 AM CDT Body Mass Index 34.75 10/21/2017 11:35 AM CDT Plan of Treatment Not on file Insurance [facility] [address] [address] Glassware Replacer Relationship Specialty Start Date End Date Yoshi Pulido MD PCP - General Internal Medicine 10/07/17
--- OUTSIDE RECORDS SUMMARY | 2025-01-11 14:20 | XMS_ITS | Clinical Summary ---
Author Organization [facility] Address [address] [place] [address] Care Team Providers Care Administrative Medical Director Name Role Phone Yoshi Pulido MD Primary Care Provider [phone] Allergies Active Allergy Reactions Criticality Noted Date [...] mellitus with other circulatory complication, unspecified whether longterm insulin use (HCC) Inject 10 Units under [...] 06/27/2017 Assessment & Plan (07/07/2017 2:34 PM STICKER MACHINE OPERATOR): Reviewed hospital admission discharge treatment plan diagnostic laboratory referrals Reconciled medication allergies Written plan was given to the patient for rtov Maintain adequate clear fluid intake. May use [id number] acetaminophen or ibuprofen. Medication instructions were provided [...] 04/25/2017 Assessment & Plan (04/25/2017 1:51 PM STICKER MACHINE OPERATOR): A urinalysis did reveal 5-10 white blood [...] provided. Assessment & Plan (07/07/2017 2:35 PM STICKER MACHINE OPERATOR): BMI Follow-up includes: nutrition counseling, exercise counseling [...] Call for fcnvd worse s/s go to [facility] er or come to ov Consult urology Assessment & Plan (12/31/2016 2:20 PM CDT): rx sent to pharmacy education for use risk benefits Do not have intercourse while still having s/s or until we know the infection has cleared Drink one gallon of water Call for fcnvd worse s/s go to [facility] er or come to ov Consult [...] orders Assessment & Plan (07/07/2017 2:34 PM STICKER MACHINE OPERATOR): Stable Lab pending Reviewed past medication, medical, [...] diabetes Assessment & Plan (07/07/2017 2:34 PM STICKER MACHINE OPERATOR): Hypertension is unchanged. Continue current treatment regimen. [...] orders. Assessment & Plan (07/07/2017 2:33 PM STICKER MACHINE OPERATOR): Lipid abnormalities are unchanged. Nutritional counseling was [...] swing Assessment & Plan (07/07/2017 2:34 PM STICKER MACHINE OPERATOR): Continue current medical management Education to stop [...] (FLUBLOK) 03/16/2015 Pneumococcal Conjugate PCV 13 03/16/2015 Surgical History Surgery Date Site/Laterality Comments VAGINAL HYSTERECTOMY 2009 Hysterectomy, vaginal Medical History Medical History Date Comments Hypertension Hypertension Asthma Asthma Depression Depression Hyperlipidemia Hyperlipidemia Diabetes mellitus (HCC) Diabetes Hx Other Medical 1992 C Section Hx Other Medical 1998 C Section Family History Medical History Relation Name Comments Asthma Father Asthma; Coronary artery disease Father Valente nary artery disease, premature; Diabetes Father Diabetes mellit us; Hyperlipidemia Father Hyperlipidemi a; Hypertension Father Hypertension; Skin cancer Father cancer, skin; Asthma Mother 2 Asthma; Diabetes Mother 2 Diabetes mellit us; Hyperlipidemia Mother 2 Hyperlipidemi a; Hypertension Mother 2 Hypertension; Lung cancer Mother 2 Cancer, lung; C ause of : Cancer, lung Asthma Sister Asthma; Diabetes Sister Diabetes mellit us; Hyperlipidemia Sister Hyperlipidemi a; Hypertension Sister Hypertension; Relation Name Status Comments Father Mother 1 Mother 2 Sister Social History Tobacco Use Types Packs/Day Years [...] on file Legal Sex Female 11:58 PM STICKER MACHINE OPERATOR Gender Identity Not on file Sexual Orientation Not on file Obstetrics History Last Filed Vital Signs Vital Sign Reading Time Taken Comments Blood Pressure 120/80 10/21/2017 11:35 AM CDT Pulse 60 10/21/2017 11:35 AM CDT Temperature 36.8 C (98.3 F) 06/27/2017 9:53 AM STICKER MACHINE OPERATOR Respiratory Rate 18 10/21/2017 11:35 AM CDT Oxygen Saturation 98% 10/21/2017 11:35 AM CDT Inhaled Oxygen Concentration - - Weight 86.2 kg (190 lb) 10/21/2017 11:35 AM CDT Height 157.5 cm (5' 2) 10/21/2017 11:35 AM CDT Body Mass Index 34.75 10/21/2017 11:35 AM CDT Plan of Treatment Not on file Insurance [facility] CHO[facility] PL[facility] Care Teams Administrative Medical Director Relationship Specialty Start Date End Date Yoshi Pulido MD PCP - General Internal Medicine 10/07/17
[2025-01-11 15:12] LABS: MALB Creatinine Ratio 25.2 mg/g (0-30)
[2025-01-11 15:21] LABS: Alanine Aminotransferase 25 U/L (6-35); Albumin Level 4.6 g/dL (3.5-5.1); Alkaline Phosphatase 96 U/L (38-126); Anion Gap 10 mmol/L (4-12); Aspartate Amino Transferase 31 U/L (14-36); Bilirubin,Total 0.5 mg/dL (0.2-1.3); Blood Urea Nitrogen 15 mg/dL (7-17); Calcium 9.5 mg/dL (8.4-10.2); Carbon Dioxide 25 mmol/L (22-30); Chloride 99 mmol/L (98-107); Estimated Glomerular Filt Rate > 60; Glucose 112 mg/dL (65-110); HDL Direct 46 mg/dL; Potassium 4.2 mmol/L (3.4-5.0); Sodium 134 mmol/L (137-145); Total Protein 8.1 g/dL (6.3-8.2)
[2025-01-11 15:37] LABS: Free T4 Free Thyroxine 1.31 ng/dL (0.78-2.19)
[2025-01-11 15:56] LABS: Thyroid Stimulating Hormone 1.490 uIU/mL (0.465-4.680)
[2025-01-11 16:15] LABS: Vitamin B12 426.0 pg/mL (239-931)
== END 2025-01-11 14:18 | disposition home or self-care (01) ==
LOC: ANHLAB 14:18
PROVIDERS: PCP Family Medicine; Visit Provider Nurse Practitioner Family
DX: E11.65 Type 2 diabetes mellitus with hyperglycemia (principal); E03.9 Hypothyroidism, unspecified; I10 Essential (primary) hypertension; E55.9 Vitamin D deficiency, unspecified; E07.9 Disorder of thyroid, unspecified
CPT/HCPCS: 36415; 80053; 82043; 82306; 82607; 83718; 84439; 84443

== ENCOUNTER 2025-03-11 07:25 | Outpatient (CLI) | payer OTHER, SELFPAY ==
--- NOTE | ~2025-03-11 | MR_ITS ---
EXAMINATION: MR brain/brain stem wo/w con DATE: 03/11/2025 08:38 INDICATION: Other amnesia. TECHNIQUE: Magnetic resonance imaging (MRI) of the brain and brainstem was performed without and with 16 mL MultiHance intravenous contrast. COMPARISON: None. FINDINGS: There are scattered areas of nonspecific increased T2-weighted signal intensity in the cerebral white matter, which is within normal limits for the patient's age. There is no intracranial hemorrhage, acute infarction, or abnormal intracranial mass lesion. The ventricles are normal in size. The orbits are normal. The paranasal sinuses are clear. The mastoid air cells are normal. IMPRESSION: 1. Normal aging brain. Reviewed, dictated and finalized at location E. IMPRESSION: 1. Normal aging brain.
--- OUTSIDE RECORDS SUMMARY | 2025-03-11 07:40 | XMS_ITS | Clinical Summary ---
Author Organization [facility] Address [address] [place] [address] Care Team Providers Care Director Of Laboratory Operations Name Role Phone Yoshi Pulido MD Primary Care Provider [phone] Allergies Active Allergy Reactions Criticality Noted Date [...] mellitus with other circulatory complication, unspecified whether detention insulin use (HCC) Inject 10 Units under [...] 06/27/2017 Assessment & Plan (07/07/2017 2:34 PM TUNGSTEN REFINER): Reviewed hospital admission discharge treatment plan diagnostic laboratory referrals Reconciled medication allergies Written plan was given to the patient for rtov Maintain adequate clear fluid intake. May use [id number]-sgybbce acetaminophen or ibuprofen. Medication instructions were provided [...] 04/25/2017 Assessment & Plan (04/25/2017 1:51 PM TUNGSTEN REFINER): A urinalysis did reveal 5-10 white blood [...] provided. Assessment & Plan (07/07/2017 2:35 PM TUNGSTEN REFINER): BMI Follow-up includes: nutrition counseling, exercise counseling [...] Call for fcnvd worse s/s go to [facility] er or come to ov Consult urology Assessment & Plan (12/31/2016 2:20 PM CDT): rx sent to pharmacy education for use risk benefits Do not have intercourse while still having s/s or until we know the infection has cleared Drink one gallon of water Call for fcnvd worse s/s go to [facility] er or come to ov Consult urology [...] orders Assessment & Plan (07/07/2017 2:34 PM TUNGSTEN REFINER): Stable Lab pending Reviewed past medication, medical, [...] diabetes Assessment & Plan (07/07/2017 2:34 PM TUNGSTEN REFINER): Hypertension is unchanged. Continue current treatment regimen. [...] orders. Assessment & Plan (07/07/2017 2:33 PM TUNGSTEN REFINER): Lipid abnormalities are unchanged. Nutritional counseling was [...] swing Assessment & Plan (07/07/2017 2:34 PM TUNGSTEN REFINER): Continue current medical management Education to stop [...] Asthma Depression Depression Hyperlipidemia Hyperlipidemia Diabetes mellitus Diabetes Hx Other Medical 1992 C Section [...] on file Legal Sex Female 11:58 PM TUNGSTEN REFINER Gender Identity Not on file Sexual Orientation Not on file Obstetrics History Last Filed Vital Signs Vital Sign Reading Time Taken Comments Blood Pressure 120/80 10/21/2017 11:35 AM CDT Pulse 60 10/21/2017 11:35 AM CDT Temperature 36.8 C (98.3 F) 06/27/2017 9:53 AM TUNGSTEN REFINER Respiratory Rate 18 10/21/2017 11:35 AM CDT Oxygen Saturation 98% 10/21/2017 11:35 AM CDT Inhaled Oxygen Concentration - - Weight 86.2 kg (190 lb) 10/21/2017 11:35 AM CDT Height 157.5 cm (5' 2) 10/21/2017 11:35 AM CDT Body Mass Index 34.75 10/21/2017 11:35 AM CDT Plan of Treatment Not on file Insurance [facility] CHO[facility] PLUS Care Teams Director Of Laboratory Operations Relationship Specialty Start Date End Date Yoshi Pulido MD PCP - General Internal Medicine 10/07/17
--- OUTSIDE RECORDS SUMMARY | 2025-03-11 07:40 | XMS_ITS | Clinical Summary ---
Author Organization [facility] Address [address] [place] [address] Care Team Providers Care Monotype Machinist Name Role Phone Koby Prince MD Primary Care Provider [phone] Allergies Active Allergy Reactions Criticality Noted Date [...] COVID-19 Vaccine ( - 2023-2 5 season) 2025 DTaP, Tdap and Td Vaccines ( 3 [...] to complete this topic Insurance Care Teams Monotype Machinist Relationship Specialty Start Date End Date Koby Prince MD [address] [place] [address] PCP - General FAMILY PRACTICE 03/07/23
== END 2025-03-11 07:26 | disposition home or self-care (01) ==
LOC: ANHIMG 07:38
PROVIDERS: PCP Family Medicine; Visit Provider Physician Assistant Medical
DX: R41.3 Other amnesia (principal)
CPT/HCPCS: 70553; A9577

== ENCOUNTER 2025-05-12 17:11 | Emergency (ER) | payer OTHER, SELFPAY ==
[2025-05-12 17:27] VITALS: BP 130/63; PULSE 60; RESP 18; TEMP 36.5; O2SAT 99
--- NOTE | 2025-05-12 17:48 | ED.URI ---
HPI - URI/Sore Throat General Chief Complaint: Upper Respiratory Infection Stated Complaint: ?Sinus Infection Time Seen by Provider: 05/12/25 17:15 Source: patient and RN notes reviewed Mode of arrival: ambulatory Limitations: no limitations History of Present Illness HPI Narrative: 59-year-old female presents Express Care complaining of upper respiratory symptoms for approximately 2 weeks. Patient says symptoms are getting any better. Patient reports cough, congestion, postnasal drip, mucopurulent nasal drainage, sinus pressure. Patient denies any other upper respiratory symptoms, fevers, body aches, chills, nausea, vomiting, diarrhea, chest pain, difficulty breathing, any other symptoms. Patient reports a history of asthma and diabetes. Related Data Home Medications ?Medication ?Instructions ?Recorded ?Confirmed ?Last Taken ?Type famotidine 20 mg tablet (Pepcid) 20 mg PO .PRN 03/04/24 04/28/25 Unknown History aspirin 81 mg tablet 81 mg PO DAILY 12/31/24 04/28/25 Unknown History Allergies Allergy/AdvReac Type Severity Reaction Status Date / Time codeine Allergy Mild Gastrointestinal Verified 05/12/25 17:21 Upset dapagliflozin (From Xigduo Allergy Mild Unknown Verified 05/12/25 17:21 XR) metformin (From Xigduo XR) Allergy Mild Unknown Verified 05/12/25 17:21 Sulfa (Sulfonamide Allergy Unknown Unknown Verified 05/12/25 17:21 Antibiotics) doxycycline Allergy Other Verified 05/12/25 17:21 lisinopril AdvReac Intermediate Cough Verified 05/12/25 17:21 cefaclor AdvReac Unknown NAUSEA Verified 05/12/25 17:21 xyltophy Allergy Itching Uncoded 04/28/25 10:21 Review of Systems Review of Systems: CONSTITUTIONAL: Denies fever, chills, body aches, or sweats. EYES: Denies visual changes, redness, or discharge. ENT: Positive for sinus pressure, congestion. Negative for sore throat, or otalgia. CARDIOVASCULAR: Denies chest pain, palpitations, or edema. RESPIRATORY: Positive for cough. Negative for dyspnea wheezing. GASTROINTESTINAL: Denies abdominal pain, nausea, vomiting, or diarrhea. GENITOURINARY: Denies dysuria or hematuria. SKIN: Denies rash or itching. MUSCULOSKELETAL: Denies back pain, joint pain, or myalgia. NEUROLOGIC: Denies headache, numbness, or weakness. PSYCHIATRIC: Denies anxiety or depression. All other systems reviewed are negative, except as documented in HPI. [facility] Past Medical History Medical History History of PCOS Lumbar spondylosis with myelopathy BMI 30.0-30.9,adult Painful urination Anemia Anxiety Depression Arthritis UTI (urinary tract infection) Ovarian cyst Endometriosis Bronchitis COPD (chronic obstructive pulmonary disease) Cataracts, bilateral Ear infection Hypertension Diabetes Hypothyroidism Asthma Surgical History Surgical History Hx of oophorectomy lt ovary Hx of arthroscopy of right knee Hx of section History of hysterectomy Hx of tubal ligation Hx of appendectomy Family History Family History Father Diabetes mellitus Mother Diabetes mellitus Sibling Gastric bypass status for obesity Social History Social History Smoking status: Never smoker Second hand tobacco smoke exposure: Yes Alcohol intake: never Substance use: never Substance use type: does not use Lack of Transportation: No Lack of Food: Never True Current Housing: I Have Housing Concerned About Future Housing: No Difficulty Paying Gas/Electric Bills: YES Difficulty Paying for Meds: No Currently Unemployed: No Education: High School Diploma/GED Difficulty w/ Childcare or Family Care: No Living arrangements: with family Occupation/Education: occupation 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 Gender identity (if verbalized by the patient): Female Comments At the time of my signature, I reviewed and agree with the nursing past medical, surgical, social, and family history. There is no relevant family history pertinent to the patient complaint. Exam Narrative: GENERAL: This is a well-nourished, well-developed adult, in no apparent distress. They are non ill-appearing, nontoxic appearing. HEAD: normocephalic, atraumatic. EYES: Sclera clear/white. Vision is grossly intact. Conjunctiva normal bilaterally. Extraocular movements intact. EARS: External ears normal, auditory canals clear and without drainage, TMs without erythema or perforation. Hearing grossly intact. NOSE: External nose normal with no obvious nasal discharge, nasal turbinates erythematous, no rhinorrhea. Maxillary and frontal sinus tenderness to palpation THROAT: Mucous membranes moist, posterior pharynx erythematous without exudate. Uvula is midline. Postnasal drip present. NECK: Neck supple, non-tender without lymphadenopathy, masses or thyromegaly. CARDIOVASCULAR: Regular rate and rhythm without murmurs, gallops, or rubs. RESPIRATORY: Clear to auscultation. Breath sounds equal bilaterally. No wheezes, rales, or rhonchi. SKIN: warm, Dry, intact with no suspicious lesions or rash, good texture and turgor. NEURO: awake, alert, and oriented to person, place and time. There were no obvious focal neurologic abnormalities. EXTREMITIES: No joint tenderness, effusion, or edema noted. BACK: Nontender without deformity. Course Course Emergency Course: Portions of this record may have been created with voice recognition software Level of Care: Express Care Visit Vital Signs Vital signs: Vital Signs Temperature 97.7 F 05/12/25 17:27 Pulse Rate 60 05/12/25 17:27 Respiratory Rate 18 05/12/25 17:27 Blood Pressure 130/63 05/12/25 17:27 Pulse Oximetry 99 05/12/25 17:27 Oxygen Delivery Room Air 05/12/25 17:27 Temperature 97.7 F 05/12/25 17:27 Pulse Rate 60 05/12/25 17:27 Respiratory Rate 18 05/12/25 17:27 Blood Pressure 130/63 05/12/25 17:27 Pulse Oximetry 99 05/12/25 17:27 Oxygen Delivery Room Air 05/12/25 17:27 MDM - URI/Sore Throat MDM Narrative Medical decision making narrative: Given patient's length of symptoms patient likely has a bacterial sinusitis. Will treat with Augmentin. Will give her prescription benzonatate tablets for cough. Discussed physical exam findings. Advised supportive measures and signs/symptoms to go to the ER. Pt is appropriate for outpt treatment and f/u. Differential Diagnosis Differential diagnosis: Likely upper respiratory infection, sinusitis, viral infection and bronchitis Discharge Plan Discharge Clinical Impression: Sinusitis Qualifiers: Sinusitis location: unspecified location Chronicity: acute Recurrence: non-recurrent Qualified Code(s): J01.90 - Acute sinusitis, unspecified Patient Disposition: Home Condition: Stable Instructions: Antibiotic Form, Sinusitis (ED) Additional Instructions: Take the antibiotics as directed and complete the course even if you start to feel better. You may use a Neti pot saline rinse 3 times a day with lukewarm distilled water Take benzonatate tablets as needed for cough. Continue to take Tylenol or Motrin as needed for fever or pain. Follow instructions on the bottle. Use a humidifier or vaporizer at night. Drink plenty of water. 8-10 glasses per day. Use flonase 2 times per day for 5 days then as needed Take mucinex 2 times per day and be sure to take with 8oz of water. Follow up with Primary provider in 3-5 days Please go to the ER if he develops any difficulty breathing, chest pains, vomiting, fevers, worsening symptoms, or any other concerns Patient Language: Kiswahili Prescriptions: New benzonatate 200 mg capsule 200 mg PO BID PRN (Reason: cough) Qty: 20 0RF amoxicillin-pot clavulanate 875-125 mg tablet 1 tablet PO Q12H 7 Days Qty: 14 0RF No Action fluticasone propionate 50 mcg/actuation spray,suspension 2 spray NASAL DAILY Qty: 15.8 0RF Rx Instructions: administer into each nostril epinephrine 0.3 mg/0.3 mL auto-injector 0.3 mg IM ONCE Qty: 1 0RF Rx Instructions: as a single dose; may repeat once (DME) pen needle, diabetic [BD Ultra-Fine Ankita Pen Needle] 32 gauge x 5/32 needle See Rx Instructions .ROUTE .MEDSUPPLY Qty: 10 1RF Rx Instructions: use weekly famotidine [Pepcid] 20 mg tablet 20 mg PO .PRN aspirin 81 mg tablet 81 mg PO DAILY icosapent ethyl [Vascepa] 1 gram capsule 2 g PO BID Qty: 360 3RF losartan 25 mg tablet See Rx Instructions .ROUTE .COMPLEX Qty: 90 1RF Dose Instruction: TAKE 1 TABLET BY MOUTH EVERY DAY Rx Instructions: TAKE 1 TABLET BY MOUTH EVERY DAY levothyroxine 137 mcg tablet See Rx Instructions .ROUTE .COMPLEX Qty: 90 1RF Dose Instruction: TAKE 1 TABLET BY MOUTH EVERY DAY Rx Instructions: TAKE 1 TABLET BY MOUTH EVERY DAY rosuvastatin [Crestor] 40 mg tablet 40 mg PO DAILY Qty: 90 3RF sertraline 100 mg tablet See Rx Instructions .ROUTE .COMPLEX Qty: 135 1RF Dose Instruction: TAKE 1 TABLET BY MOUTH EVERY DAY Rx Instructions: TAKE 1.5 TABLET BY MOUTH EVERY DAY diphenhydramine HCl [Benadryl] 25 mg capsule 25 mg PO Q6H PRN (Reason: allergic reaction) Qty: 20 0RF (DME) Compact Ultrasonic Nebulizer Misc See Rx Instructions .ROUTE .MEDSUPPLY Qty: 1 0RF Rx Instructions: As directed albuterol sulfate 2.5 mg /3 mL (0.083 %) solution for nebulization 2.5 mg INHALATION Q4H PRN (Reason: shortness of breath or wheezing) Qty: 90 0RF (DME) blood-glucose meter [OneTouch Verio Reflect] Kit See Rx Instructions .Route Qty: 1 0RF Rx Instructions: As directed (DME) OneTouch Verio test strips Strip See Rx Instructions .ROUTE .MEDSUPPLY Qty: 100 1RF Rx Instructions: check blood sugars twice a day (DME) lancets 33 gauge misc See Rx Instructions .ROUTE .MEDSUPPLY Qty: 100 1RF Rx Instructions: use twice daily albuterol sulfate 90 mcg/actuation HFA aerosol inhaler See Rx Instructions .ROUTE .COMPLEX Qty: 2 1RF Dose Instruction: INHALE 2 PUFFS 4 TIMES A DAY NEEDED FOR SHORTNESS OF BREATH OR WHEEZING Rx Instructions: INHALE 2 PUFFS 4 TIMES A DAY NEEDED FOR SHORTNESS OF BREATH OR WHEEZING Ozempic 2 mg/dose (8 mg/3 mL) pen injector 2 mg subcut WEEKLY Qty: 9 0RF Rx Instructions: NEEDS APPOINTMENT metoprolol succinate 25 mg tablet extended release 24 hr 25 mg PO DAILY Qty: 90 1RF Follow-up/Referrals: Koby Prince MD [Primary Care Provider, Family Practice] Time of Disposition: 17:41
== END 2025-05-12 17:48 | disposition home or self-care (01) ==
PROVIDERS: PCP Family Medicine
DX: J01.90 Acute sinusitis, unspecified (principal); E03.9 Hypothyroidism, unspecified; J44.9 Chronic obstructive pulmonary disease, unspecified; I10 Essential (primary) hypertension
CPT/HCPCS: 99213; G0463